=== PATIENT | male | born 1950 | race Caucasian/White ===

== ENCOUNTER → 2024-08-09 18:29 | Outpatient (REF) | payer MEDICARE, SELFPAY | LOC: MRI 3T 18:29 | PROVIDERS: ATTENDING PHYSICIAN Internal Medicine Medical Oncology; FAMILY PHYSICIAN Internal Medicine Geriatric Medicine | DX: C74.02 Malignant neoplasm of cortex of left adrenal gland (principal) | CPT/HCPCS: 72141 ==

== ENCOUNTER → 2024-08-19 14:35 | Outpatient (REF) | payer MEDICARE, SELFPAY ==
[2024-08-19 15:37] LABS: % Basophils 0.6 % (0-2); % Eosinophils 8.7 % (0-6); % Immature Granulocytes 0.2 % (0-0.5); % Lymphocytes 19.4 % (20.5-51.1); % Monocytes 9.9 % (1.7-9.3); % Neutrophils 61.2 % (42.2-75.2); Absolute Eosinophils 0.4 10^3/uL (0-0.7); Absolute Monocytes 0.5 10^3/uL (0.1-0.6); Hematocrit 31.3 % (39.0-52.0); Hemoglobin 10.6 g/dL (13.0-18.0); Mean Corp Hgb Conc. 33.9 g/dL (33.0-37.0); Mean Corpuscular Volume 94.6 fL (80.0-94.0); Mean Platelet Volume 10.5 fL (7.4-10.4); Nucleated Red Blood Cells % 0 % (-); Platelet Count 158 10^3/uL (130-400); Red Blood Cell Count 3.31 10^6/uL (4.70-6.10); Red Cell Dist. Width 15.6 % (11.5-14.5)
[2024-08-19 15:41] LABS: PT 16.4 Sec (11.4-14.6)
[2024-08-19 16:01] LABS: ALT (SGPT) 17 U/L (0-50); AST (SGOT) 34 U/L (17-59); Albumin 3.1 g/dl (3.5-5.0); Alkaline Phosphatase 147 U/L (38-126); Blood Urea Nitrogen 23 mg/dl (9-20); Calcium 8.6 mg/dl (8.4-10.2); Carbon Dioxide 27 mmol/L (22-30); Chloride 107 mmol/L (98-107); Glucose 94 mg/dl (70-99); Potassium 3.8 mmol/L (3.5-5.1); Sodium 138 mmol/L (135-145); Total Bilirubin 0.6 mg/dl (0.2-1.3); Total Protein 5.2 g/dl (6.3-8.2); eGFR > 60.00
== END ==
LOC: REG 14:35
PROVIDERS: ATTENDING PHYSICIAN Registered Nurse Oncology; FAMILY PHYSICIAN Internal Medicine Geriatric Medicine
DX: C78.7 Secondary malignant neoplasm of liver and intrahepatic bile duct (principal); C74.00 Malignant neoplasm of cortex of unspecified adrenal gland
CPT/HCPCS: 36415; 80053; 85025; 85610

== ENCOUNTER → 2024-08-27 10:56 | Outpatient (REF) | payer MEDICARE, SELFPAY | LOC: RAD 10:56 | PROVIDERS: FAMILY PHYSICIAN Internal Medicine Geriatric Medicine | DX: C79.51 Secondary malignant neoplasm of bone (principal); C79.52 Secondary malignant neoplasm of bone marrow | CPT/HCPCS: 70450 ==

== ENCOUNTER → 2024-09-30 12:29 | Outpatient (REF) | payer MEDICARE, SELFPAY ==
[2024-09-30 13:15] LABS: Hematocrit 35.8 % (39.0-52.0); Hemoglobin 12.0 g/dL (13.0-18.0); Mean Corp Hgb Conc. 33.5 g/dL (33.0-37.0); Mean Corpuscular Volume 96.8 fL (80.0-94.0); Nucleated Red Blood Cells % 0 % (-); Platelet Count 149 10^3/uL (130-400); Red Cell Dist. Width 15.2 % (11.5-14.5)
[2024-09-30 13:26] LABS: INR 1.30; PT 16.4 Sec (11.4-14.6)
[2024-09-30 13:28] LABS: ALT (SGPT) 22 U/L (0-50); AST (SGOT) 68 U/L (17-59); Albumin 3.5 g/dl (3.5-5.0); Alkaline Phosphatase 204 U/L (38-126); Blood Urea Nitrogen 18 mg/dl (9-20); Calcium 8.7 mg/dl (8.4-10.2); Carbon Dioxide 30 mmol/L (22-30); Chloride 102 mmol/L (98-107); Glucose 77 mg/dl (70-99); Potassium 3.8 mmol/L (3.5-5.1); Sodium 136 mmol/L (135-145); Total Protein 5.7 g/dl (6.3-8.2); eGFR > 60.00
== END ==
LOC: REG 12:29
PROVIDERS: ATTENDING PHYSICIAN Radiology Diagnostic Radiology; FAMILY PHYSICIAN Internal Medicine Geriatric Medicine
DX: C78.7 Secondary malignant neoplasm of liver and intrahepatic bile duct (principal)
CPT/HCPCS: 36415; 80053; 85025; 85610

== ENCOUNTER 2024-12-16 07:57 | Inpatient (IN) | payer MEDICARE, SELFPAY ==
[2024-12-15 21:56] VITALS: BP 149/74
[2024-12-16] VITALS (17 sets, daily range): BP systolic 86–137; BP diastolic 51–67; PULSE 103; O2SAT 93; BMI 26.0
[2024-12-16 01:57] LABS: Hematocrit 30.5 % (39.0-52.0); Hemoglobin 10.7 g/dL (13.0-18.0); Mean Corp Hgb Conc. 35.1 g/dL (33.0-37.0); Mean Corpuscular Volume 89.2 fL (80.0-94.0); Platelet Count 46 10^3/uL (130-400); Red Cell Dist. Width 17.3 % (11.5-14.5)
[2024-12-16 02:03] LABS: ALT (SGPT) 29 U/L (0-50); AST (SGOT) 79 U/L (17-59); Albumin 2.5 g/dl (3.5-5.0); Alkaline Phosphatase 162 U/L (38-126); Blood Urea Nitrogen 89 mg/dl (9-20); Calcium 7.0 mg/dl (8.4-10.2); Carbon Dioxide 19 mmol/L (22-30); Chloride 101 mmol/L (98-107); Estimated Creatinine Clearance 22 ml/min; Glucose 61 mg/dl (70-99); Potassium 5.3 mmol/L (3.5-5.1); Sodium 128 mmol/L (135-145); Total Protein 4.7 g/dl (6.3-8.2); eGFR 22.67
[2024-12-16] MEDS: DILAUDID 0.5 MG IV ×2 (02:46→10:31)
[2024-12-16 03:14] LABS: Nucleated Red Blood Cells % 0 % (-)
[2024-12-16 03:18] LABS: Vacuolated Segs 3+
[2024-12-16 03:19] LABS: Acanthocytes 2+; Burr Cells 3+
[2024-12-16 03:20] LABS: Polychromasia 1+
[2024-12-16 03:21] LABS: Anisocytosis 3+; Ovalocytes 1+; Schistocytes 1+
[2024-12-16 03:23] LABS: Normal RBC Morphology No
[2024-12-16 03:25] LABS: Urine Character Slightly Cloudy (Clear)
[2024-12-16 03:27] LABS: Glucose - Point of Care 84 mg/dl (70-99)
[2024-12-16 03:27] LABS: Urine Red Blood Cell 16-20 /HPF (0-2)
[2024-12-16 03:28] LABS: Urine White Cell >100 /HPF (0-5)
--- NOTE | 2024-12-16 03:50 | ED.GENMED ---
History of Present Illness
General
Chief Complaint: Abnormal Lab Value
Source: patient
Exam Limitations: none
Time Seen by Provider: 12/16/24 00:54
Nursing documentation reviewed up to this point in time: agreed with
History of Present Illness
History of Present Illness:
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 He was being treated at the [facility] in [place] until recently. There he was given a trial of
medication had significant renal dysfunction they are discontinued the treatment recently and came home to the local area here today. Initially was refusing any rehabilitation facility at the time but claims that he has had significant difficulty
with gait ambulation and caring for himself. He feels that he is unsafe to be home at this point. He is seeking palliative care. Patient claims to be DNR/DNI.
Past History
Past History
ED Past Medical History: Arrthythmia (SVT)
Social History
Tobacco: Non-smoker
Alcohol: None
Drug: None
Personal:
Living: with family
Employment: Employed
Family History
Family History: Other (Noncontributory)
Review of Systems
Review of Systems
Allergies reviewed?: Yes
All Other Systems: ROS reviewed and negative except as documented in HPI and ROS
Phy Exam
Physical Exam
Physical Exam:
GENERAL: Alert , in no apparent distress
EYE: pupils equal and reactive
NECK: Supple, no significant adenopathy.
ENT: o/p clr, mmm.
CARDIAC: Regular rate and rhythm .
LUNGS: Clear breath sounds bilaterally, no acute respiratory distress, no wheezes/rales/rhonchi
ABDOMEN: Rigid abdomen with significantly enlarged liver no pain to palpation
NEUROLOGICAL: Alert and oriented, no focal neuro deficits
SKIN: Warm and dry, skin intact.
MUSCULOSKELETAL: No edema, well perfused.
PSYCH: Normal and appropriate interaction.
Course
Orders/Labs/Results
Orders:
Orders
12/16/24 01:10
Electrocardiogram (*1) Urgent
Reason for Study: Fatigue / Weakness
EKG- Treatment ONCE
12/16/24 01:34
CBC/With Diff [Complete Blood Count/With Diff] Urgent
CMP [Comprehensive Metabolic Panel] Urgent
12/16/24 02:36
HYDROmorphone [Dilaudid] 0.5 mg IV NOW STA
12/16/24 02:47
Urinalysis Reflex To Culture Urgent
Date Specimen was Collected: 12/16/24
Time Specimen was Collected: 02:46
Urine Microscopic Reflex Cult Urgent
Urine Culture Urgent
RADHA Source: U
Specimen Description:
Date Specimen was Collected: 12/16/24
Time Specimen was Collected: 02:46
12/16/24 04:13
CefTRIAXone [Rocephin] 1,000 mg IV NOW STA
Pt Eval And Treat Urgent
Activity Level: Ambulate
Abnormal Lab Results
12/16/24 12/16/24
01:34 02:47
WBC 13.7 H 10^3/uL
(4.8-10.8)
RBC 3.42 L 10^6/uL
(4.70-6.10)
Hgb 10.7 L g/dL
(13.0-18.0)
Hct 30.5 L %
(39.0-52.0)
MCH 31.3 H pg
(27.0-31.0)
RDW 17.3 H %
(11.5-14.5)
Plt Count 46 L 10^3/uL
(130-400)
MPV 12.6 H fL
(7.4-10.4)
Abs Immat Gran (auto) 0.1 H 10^3/uL
(0-0.05)
Absolute Neuts (auto) 12.8 H 10^3/uL
(1.4-6.5)
Absolute Lymphs (auto) 0.3 L 10^3/uL
(1.2-3.4)
Immature Gran % 0.7 H %
(0-0.5)
Neutrophils % 93.0 H %
(42.2-75.2)
Lymphocytes % 1.9 L %
(20.5-51.1)
Sodium 128 L mmol/L
(135-145)
Potassium 5.3 H mmol/L
(3.5-5.1)
Carbon Dioxide 19 L mmol/L
(22-30)
BUN 89 H mg/dl
(9-20)
Creatinine 2.8 H mg/dL
(0.7-1.3)
Glucose 61 L mg/dl
(70-99)
Calcium 7.0 L mg/dl
(8.4-10.2)
AST 79 H U/L
(17-59)
Alkaline Phosphatase 162 H U/L
(38-126)
Total Protein 4.7 L g/dl
(6.3-8.2)
Albumin 2.5 L g/dl
(3.5-5.0)
Ur Occult Blood Reflex 4+ A
(Negative)
Leukocyte Esterase Rfl 3+ A
(Negative)
Urine RBC 16-20 A /HPF
(0-2)
Urine WBC (Reflex) >100 A /HPF
(0-5)
Urine Bacteria (Reflex) Many A
(Negative)
Urine Albumin (Reflex) 3+ A
(Neg - Trace)
12/16/24 01:34
12/16/24 01:34
Vital Signs
Initial and Last Documented VS:
Initial Vital Signs
Temp Pulse Resp BP Pulse Ox
98.8 F 93 24 149/74 95
12/15/24 21:56 12/15/24 21:56 12/15/24 21:56 12/15/24 21:56 12/15/24 21:56
Last Documented Vital Signs
Temp Pulse Resp BP Pulse Ox
98.8 F 82 19 115/58 91
12/16/24 03:39 12/16/24 03:30 12/16/24 03:30 12/16/24 03:00 12/16/24 03:53
MDM/Problems Addressed
MDM/Problems Addressed:
74-year-old male presenting to the emergency department today with concerns of difficulty caring for himself at home. Does have metastatic adrenal carcinoma. Was previously getting a trial treatment at the [facility] but was recently discontinued due
lack of clinical improvement. On arrival here vital signs nonemergent labs apparently at patient's baseline after discussion with patient's team from the [facility]. At this point he claims he is unsafe to go home plan to admit for case management
consultation and further assessment.
*Pulse Oximetry
SaO2: 91
Oxygen Mode of Delivery: Room air
Patient hypoxic: no (97)
*Critical Care Note
Total Time (30-74mins, 75-104mins- exclusive of procedures): Not Applicable
ED Attending Note
-
Portions of this chart may have been created with voice recognition software.� Occasional wrong word or��sound alike� substitutions may have occurred due to the inherent limitations of voice recognition software.
Discharge Plan
Departure
Patient Disposition: Admit
Date of Disposition: 12/16/24
Time of Disposition: 05:22
Admit to: Med/Surg
Admit to doctor: Ho
Presentation/result/management discussed w/ accepting MD/DO: Hospitalist
Patient with high blood pressure during this ER visit?: No
Condition: Good
Covid-19: Not Applicable
Discharge Problem:
Acute UTI, Ambulatory dysfunction
Prescriptions:
No Action
ascorbic acid (vitamin C) 1,500 MG tablet extended release
1,500 mg PO TID
[id number]-herbal cmplx#190 [Vitamin D3 Complete] 1 EACH tablet
5 ea PO DAILY
[place] Bioflavonoids
600 mg PO DAILY
Referrals:
Mike Wills MD [Family Provider, Internal Medicine]
Interventions
Interventions:
*Risk Screen - Suicide Last Done: 12/16/24 00:40
*General Assessment Last Done: 12/16/24 00:40
*Neglect/Abuse Screening Last Done: 12/16/24 00:40
*ED COVID-19 Vaccine History Last Done: 12/16/24 00:39
*ED Influenza Vaccine History Last Done: 12/16/24 00:39
Discharge Date and Time
Print Language: [place]CI[place]
[2024-12-16] MEDS: ROCEPHIN 1000 MG IV (05:39)
--- NOTE | 2024-12-16 06:41 | HPS.HSE ---
Family Physician
-
Family Physician: Mike Wills
Chief Complaint
-
Failure to thrive
History of Present Illness
This is a 74-year-old male with past medical history of progressive metastatic adrenal cancer who presents after discharge from [facility] study today for failure to improve and stopped at ED because he realizes he is unable to money by himself.
Patient is a fairly poor historian at this time but history obtained from [facility] [place] medical records.
Patient has extensive history of metastatic adrenal cancer status post lymphadenectomy in 2019, ablation of a kidney mass direct with for the metastases noted in the liver lungs and metastatic to bone. He has extensive liver mass with the largest
mass measuring 20 cm despite this patient is not complaining of any abdominal pain but does have mild nausea with occasional vomiting. He progressed through pembrolizumab in 2022, cabozantinib plus pembrolizumab in 2023 with improvement in lung
mets but continued progression of liver mets. He apparently had 3 Y90 treatment in July and for that treatment was deemed not to be helpful by IR. CT scan continue to show progression of disease in October and patient was ultimately enrolled in [facility]
trial. He completed several weeks of NIH trial from November 2 December 15 when he was discharged from the trial for failure to improve. In the past he has had weakness and diarrhea from his chemotherapy but denies any specific symptoms from this
current treatment but states that he was deemed unable to continue the trial. He was not discharged on any new medications except for symptomatic meds. He did note that he had more pain and was getting Dilaudid at [facility]. After discharge from [facility]
patient who lives at [place] traveled to [place] because he is oncologist there is at [facility] and brought himself to this ED.
He blood pressure was 115/58, temperature was 98.2, pulse rate 82 and he was satting 91% on room air. ECG shows normal sinus rhythm at a rate of 85.
UA is positive. CBC notable for white count 13.7 and a blood count of 46. Electrolytes notable for a sodium of 128 potassium of 5.3 bicarb of 19. BUN is up to 89 with a creatinine of 2.8 up from 0.9 in September. Calcium 7.0 corrected to 8.2 with
albumin of 2.5.
This labs were said to be similar to his discharge labs from the [facility] study.
Medical History
Past Medical History
Past Medical History: Reports Cancer (Metastatic adrenal carcinoma)
Past Surgical History: Reports Other (Left adrenalectomy, ablation of kidney mass, left nephrectomy)
Social History
Tobacco: Former Smoker
Alcohol: None
Drug: None
Personal: Single
Living: Alone
Employment: Disabled
Family History
Family History: Not pertinent
Allergies / Home Medications
Allergies reflects when Allergies were last updated in [facility].
Home Medications with original date entered in [facility]
Allergy/Medication List:
Allergies
Allergy/AdvReac Type Severity Reaction Status Date / Time
No Known Allergies Allergy Verified 08/07/20 10:42
Home Medications
[place] Bioflavonoids 600 mg PO DAILY 08/07/20
ascorbic acid (vitamin C) 1,500 mg tablet,extended release 1,500 mg PO TID 08/07/20
multivit with [id number]#190herbal 18 mg iron-800 mcg-150 mg tablet (Vitamin D3 Complete) 5 ea PO DAILY 08/07/20
Review of Systems
-
History Source: Patient
Constitutional: Reports Fatigue
EENT: Reports No Symptoms
Respiratory: Reports No Symptoms
Cardiac: Reports No Symptoms
Abdomen/GI: Reports Nausea and Constipated
: Reports No Symptoms
Musculoskeletal: Reports Edema
Skin: Reports No Symptoms
Neurological: Reports No Symptoms
Endocrine: Reports No Symptoms
Hematologic/Lymphatic: Reports No Symptoms
Physical Exam
Vital Signs
Vital Signs
Temp Pulse Resp BP Pulse Ox
98.8 F 91 22 124/60 91
12/16/24 03:39 12/16/24 05:45 12/16/24 05:45 12/16/24 05:00 12/16/24 05:45
Physical Exam
General: No Apparent Distress and Appears Chronically Ill; No Cachectic
HEENT: NormoCephalic, Anicteric, Moist mucous membranes, Atraumatic and PERRLA
Respiratory: Clear
Cardiac: S1/S2 and Regular Rhythm
Breast: Deferred by me
GI: Distended and Organomegaly (Hepatomegally)
Rectal: Deferred by Provider
Genito-urinary: Deferred by me
Musculoskeletal: Edema, Left Lower Extremity (2+) and Edema, Right Lower Extremity (2+)
Skin: Warm
Neuro: AO x 3 and Nonfocal/grossly intact
Psych: Calm
Laboratory Results
-
12/16/24 01:34
12/16/24 01:34
Laboratory Results
Total Bilirubin 1.1 mg/dl (0.2-1.3) 12/16/24 01:34
AST 79 U/L (17-59) H 12/16/24 01:34
ALT 29 U/L (0-50) 12/16/24 01:34
Alkaline Phosphatase 162 U/L (38-126) H 12/16/24 01:34
Data Reviewed
-
Medical Tests (Nuc Med, Echo, EKG etc): Image Personally Visualized and interpreted
Lab Data: Labs Reviewed by me
Impression/Plan
-
IMPRESSION:
74-year-old with metastatic adrenal cancer presenting to the emergency department with essentially failure to thrive after being discharged from [facility] study for failure of improvement. Comes to ED here for placement. While not cachectic he is
clearly weak with progressive weight loss has significant bilateral lower extremity edema, large abdominal mass likely of liver origin with labs notable for thrombocytopenia, natremia, JAVED with a creatinine of 2.8 and a BUN of 89 with mild
hypocalcemia. He has significantly positive UA without urinary symptoms.
PLAN:
UTI - Markedly positive u/a peripheral leukocytosis. No clear h/o obstruction
- admit to med/surg
- urine culture sent
- IV ceftriaxone for now
- w/ solitary kidney and metastatic disease, u/s imaging to rule out ureteral obstruction
JAVED - Cr normal in September now 2.8. Reported to be discharge creatinine from recent NIH study. Unknown what studies done to determine etiology or if med induced. Suggestion of dehydration given FTT but patient w/ peripheral edema. Reports no h/o
ascites/cirrhosis, no h/o thrombosis and no h/o CHF. Says Edema has been chronic for years. Urinated
- u/s abdomen to rule out obstruction, eval ascites
- urine Na, Cr
- Gentle hydration for now
- nephrology consult.
Hyponatremia - Subacute suspected. Possible hypovolemic despite peripheral edema
- urine studies with urine osm
- eval for ascites
- check tsh
- start IV NS with free water restriction and repeat in 6 - 8 hours,
- nephrology consult
EDEMA - Reports chronic LE edema. No h/o CHF
- check bnp
- Xray
- abd u/s and dopplers to eval IVC thrombus or extrinsic obstruction
- urine protein/Cr
Hypocalcemia
- 1 g calcium gluconate for now
Metastatic Adrenal Ca - Appears to have failed trial drug. Oncology has one more option previously discussed but seemed toxic with low probability of efficacy
- his oncologist is now Dr. Shanelle Jacob at [facility], contact in am
- continue antiemetics, pain control, antitussives
- PT consultation
- Case management
DVT PPX - heparin sq
Code Status - DNR.
[2024-12-16] MEDS: TYLENOL 650 MG PO (09:32)
[2024-12-16] MEDS: SYNTHROID PO (09:35)
[2024-12-16] MEDS: COLACE PO (10:32)
[2024-12-16] MEDS: D5/0.9% SODIUM CHLORIDE 1000 IV (11:15)
--- NOTE | 2024-12-16 12:06 | CM ---
Met with patient at bedside in the ED; with his permission, [employer], spoke with primary contact/cousin, John, via phone. Cousin lives in [place]; believes he has medical POA
Patient was drowsy during initial assessment; cousin verified patient's assessment responses
Pharmacy: [address]
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
PLOF: difficulty ambulating and caring for self; no home oxygen
No SNF or Home Health utilization history
Plan: Inpatient Admission status; explained to patient that SNF was recommended when he is stable for discharge; he is agreeable to caser in sending referrals to sites in [place]
--- NOTE | 2024-12-16 13:28 | W.PN.HOSP.TC ---
Addendum entered and electronically signed by Abhishek Spring DO 12/17/24 15:43:
CDI: Sepsis POA, SIRS criteria improved with IV fluids and antibiotics
Original Note:
Today's Communication/Plan
-
Continue IV fluids for now
Follow-up ultrasound of abdomen
Order TTE and chest x-ray
Oncology consult
Pending nephrology eval
Requested records from [facility]
Assessment / Plan
Assessment / Plan
#Urinary tract infection
#Solitary kidney, s/p left nephrectomy
- Presented with markedly positive urinalysis, leukocytosis, low-grade fever
- Urine culture obtained in the ED and started on IV ceftriaxone empirically
- Renal ultrasound ordered to rule out obstructing stone due to solitary kidney
- Continue IV CTX, trend CBC and temperature curve, follow urine culture
- Follow-up renal ultrasound
#Elevated serum creatinine
#Hyperkalemia
- JAVED versus newly acquired chronic renal insufficiency due to experimental cancer therapy
- Unknown pharmacodynamics/kinetics concerning which agent he was receiving at the [facility] for his cancer
- Presented here with creatinine of 2.8, BUN 89; states that these are similar to numbers he had at [facility]
- Was started on IV fluids upon arrival, no labs repeated since that time; nephrology consult pending
- Continue with IV fluids, trend BMP and UOP closely
- Follow-up renal ultrasound to rule out obstruction
- Avoid nephrotoxic agents, temporize K >6 or ECG changes
- F/U [facility] records, which have been requested
#Hypovolemic hyponatremia
- Urine osmolality 272 with low urine sodium, unlikely inappropriate ADH
- Started on IV fluids upon arrival which suspect will improve sodium
- Continue IV fluids and trend BMP
#Chronic LE edema
-BNP is very high however he does not complain of other symptoms of heart failure
-Abdomen ultrasound and Dopplers were ordered on arrival to rule out IVC thrombus/obstruction
-Urine protein to creatinine ratio 4.9 not consistent with active glomerular process
-Follow-up ultrasound of the abdomen, check TTE and chest x-ray
#Metastatic adrenal cancer
-S/p chemoradiation and immunotherapy, also received ablations in the past
-Was improved with experimental trial at the [facility] though discharged yesterday as he did not improve
-Will consult oncology for further treatment considerations
-Question if he is at the point of needing hospice
#Hypothyroidism
-Unclear etiology, no known autoimmune history, possibly related to cancer
-Home regimen includes levothyroxine 88 mcg daily, appears stable on this regimen
Diet: Regular
Thromboprophylaxis: SQ heparin
CODE STATUS: DNR/DNI
Disposition: PT consulted
Anticipated Discharge: > 48 hours
Subjective/Interval History
-
Date of Service: December 16, 2024
Seen and examined at the bedside. No acute events reported overnight. AFVSS this morning
BNP came back at 27,000. Abdomen ultrasound still pending since admission.
Patient denies any acute complaints this morning.
Objective Data
-
Labs:
Laboratory Results
12/16/24
01:34
WBC 13.7 H
Hgb 10.7 L
Hct 30.5 L
Plt Count 46 L
Sodium 128 L
Potassium 5.3 H
Chloride 101
Carbon Dioxide 19 L
BUN 89 H
Creatinine 2.8 H
Glucose 61 L
Calcium 7.0 L
Total Bilirubin 1.1
AST 79 H
ALT 29
Alkaline Phosphatase 162 H
Vital Signs:
Vital Signs
Temp Pulse Resp BP Pulse Ox
100.6 F H 76 15 88/57 95
12/16/24 08:36 12/16/24 13:00 12/16/24 13:00 12/16/24 13:00 12/16/24 13:00
Review of Systems
-
History Source: Patient
All other systems: Reviewed and negative
Physical Exam
-
General: Well Developed, Appears Chronically Ill and Other (Frail-appearing)
HEENT: Normocephalic, Atraumatic, Moist Mucous Membranes and Anicteric
Respiratory: Clear to Auscultation and Non Labored Respirations
Cardiac: Regular Rhythm and S1/S2; Negative Murmur, Rub or Tachycardic
GI: Tender, Distended and Other (Reduced bowel sounds)
Musculoskeletal: No Clubbing, No Cyanosis and No Edema
Skin: Warm and Dry; Negative Rash
Neuro: AO x 3 and Nonfocal/Grossly Intact
Psych: Calm
Data Reviewed
-
Labs: Labs Reviewed by me, Discussed with Physician (Oncologist) and Discussed with Patient
--- NOTE | 2024-12-16 14:27 | W.CON.NEPH ---
Consultation
-
Date/Time Consultation Requested: 12/16/2024 11 AM
Date/Time Consultation Performed: 12/16/2024 2 PM
Requesting Provider: Dr. Teague
Performing Provider: Dr. Timmons
Reason for Consultation: JAVED
Medical History
-
Chief Complaint: JAVED
History of Present Illness:
This is a 74-year-old gentleman with metastatic renal cancer status post left adrenalectomy in 2019 with metastatic disease to liver lungs bone. He has also had a left nephrectomy as well. He has failed multiple chemotherapy immunotherapy
regimens. Most recently he was enrolled in an [facility] study from November 08 to December 15 but then was discharged with a trial because of failure of improvement. He subsequently came to [place] to [facility].. Here he was noted to have
a creatinine of 2.8 with a sodium of 128 and potassium 5.3. Labs were closer to normal with a creatinine 0.9 back in September 2024. He is noted to be hypotensive in the emergency room as well
Past Medical History
Metastatic adenocarcinoma
Left adrenalectomy
Kidney mass ablation
Left nephrectomy
Hypothyroidism
Social History
Tobacco: Former Smoker
Alcohol: None
Family History
Family History: Not Pertinent
Allergies / Home Medications
Allergy/AdvReac Type Severity Reaction Status Date / Time
No Known Allergies Allergy Verified 08/07/20 10:42
�Medication �Instructions �Recorded �Confirmed �Type
levothyroxine 88 mcg tablet 88 mcg PO DAILY 12/16/24 12/16/24 History
Review of Systems
-
No chest pain appetite has been good
Lower extremity ISAIAH stable
Abdominal distention stable
Lightheadedness
No change in urine output
no change in bowel movements
All other systems: Negative unless noted
Physical Exam
Vital Signs
Vital Signs
Temp Pulse Resp BP Pulse Ox
100.6 F H 76 15 88/57 95
10/10/25 08:36 12/16/24 13:00 12/16/24 13:00 12/16/24 13:00 12/16/24 13:00
Lab Results
WBC 13.7 10^3/uL (4.8-10.8) H 12/16/24 01:34
RBC 3.42 10^6/uL (4.70-6.10) L 12/16/24 01:34
Hgb 10.7 g/dL (13.0-18.0) L 12/16/24 01:34
Hct 30.5 % (39.0-52.0) L 12/16/24 01:34
Plt Count 46 10^3/uL (130-400) L 12/16/24 01:34
Sodium 128 mmol/L (135-145) L 12/16/24 01:34
Potassium 5.3 mmol/L (3.5-5.1) H 12/16/24 01:34
Chloride 101 mmol/L (98-107) 12/16/24 01:34
Carbon Dioxide 19 mmol/L (22-30) L 12/16/24 01:34
BUN 89 mg/dl (9-20) H 12/16/24 01:34
Creatinine 2.8 mg/dL (0.7-1.3) H 12/16/24 01:34
eGFR 22.67 12/16/24 01:34
Glucose 61 mg/dl (70-99) L 12/16/24 01:34
Calcium 7.0 mg/dl (8.4-10.2) L 12/16/24 01:34
Zju-Q-Kjqgcvuzqmf Pept > 89822 pg/ml 12/16/24 09:35
Albumin 2.5 g/dl (3.5-5.0) L 12/16/24 01:34
Laboratory Tests
09/30/24 12/16/24 12/16/24
12:46 09:04 09:35
Creatinine 0.9
Meg-G-Kxjvurjghtu Pept > [id number]
Protein/Creatinin Ratio 4.9
Urine Sodium 20 L
Physical Exam
Patient is awake alert oriented and in no distress. Mood and affect were pleasant, insight and judgment were good. Pupils are equal round and reactive to light, extraocular movements are intact, sclera were anicteric. Hearing was normal, ears and
nose are intact. Oropharynx was clear. Neck was supple with trachea midline and no thyromegaly. Heart was regular rate and rhythm without rubs. Lower extremities with 3+ edema. Lungs were clear to auscultation bilaterally and with normal
excursion. Abdomen was soft, nontender, distended with palpable mass on the right. With normal active bowel sounds. Skin was without rash and with normal turgor.
Data Reviewed
-
Medical Tests (Nuc Med, Echo etc): Image Personally Visualized and interpreted (EKG 12/16/2024 by me normal sinus rhythm left axis deviation)
Labs: Labs Reviewed by me
Old Records: Reviewed
Assessment/Plan
-
Assessment
JAVED
Hyponatremia
Hyperkalemia
Metabolic acidosis
Hypotension
Edema
Nephrotic range proteinuria
Metastatic adrenal carcinoma
Solitary right kidney, left nephrectomy
Plan
Continue IV fluids isotonic
Follow BMP
Check cortisol
Start hydrocortisone
Await additional records from [facility]
Prognosis poor
Critical care time spent 31 minutes
[2024-12-16] MEDS: SOLU-CORTEF 100 MG IV ×2 (15:29→20:01)
--- NOTE | 2024-12-16 15:57 | PN.CDI ---
CDI
- -
CDI:
Physician Documentation Request
Admit Date: 12/16/24 07:57
Dear Doctor Saw,
Please review the following and provide your response in the progress notes.
Clinical Indicators:
Pt admitted with JAVED/UTI pt on IV ceftriaxone
On admission WBC 13.7,HR 120,Respirations 33
Please clarify which of the following most accurately describes the status of the patient's infection:
Sepsis-POA
- Systemic manifestations of infection, with 2 or more SIRS criteria which include:
- Fever >100.9 degrees F or hypothermia < 96.8 degrees F
- Leukocytosis - WBC > 12,000 or leukopenia - WBC < 4,000 or > 10% bands
- Tachycardia > 90 beats per minute
- Tachypnea - RR > 20 breaths per minute or PaCO2 , 32mmHg
Source: Merck Manual 2013
UTI only, Without Systemic Illness
Other ( please specify)
Use of terms such as suspected, likely, concern for, or probable (associated with a specific diagnosis that is being evaluated, monitored, or treated as if it exists) are acceptable and can be coded in the inpatient setting, when documented at the
time of discharge.
Thank you,
Patricia Cleary RN
CDI Specialist
[place] [facility]
Please use your independent medical judgment in providing your response.
[2024-12-16 16:50] LABS: Cortisol, Random 55.3 ug/dl
[2024-12-16] MEDS: COLACE 100 MG PO (19:51)
[2024-12-17] MEDS: D5/0.9% SODIUM CHLORIDE 1000 IV (01:26)
[2024-12-17] MEDS: DILAUDID 0.5 MG IV ×2 (02:39→23:28)
[2024-12-17] MEDS: SYNTHROID 88 MCG PO (05:49)
[2024-12-17] MEDS: STERILE WATER FOR INJECTION 10 ML IV (05:49)
[2024-12-17] MEDS: ROCEPHIN 1000 MG IV (05:49)
[2024-12-17 06:00] VITALS: BMI 25.3
[2024-12-17 06:53] LABS: Hematocrit 31.6 % (39.0-52.0); Hemoglobin 10.5 g/dL (13.0-18.0); Mean Corp Hgb Conc. 33.2 g/dL (33.0-37.0); Mean Corpuscular Volume 92.9 fL (80.0-94.0); Red Cell Dist. Width 17.6 % (11.5-14.5)
[2024-12-17 07:14] LABS: Blood Urea Nitrogen 107 mg/dl (9-20); Calcium 6.9 mg/dl (8.4-10.2); Carbon Dioxide 17 mmol/L (22-30); Chloride 101 mmol/L (98-107); Glucose 122 mg/dl (70-99); Potassium 5.3 mmol/L (3.5-5.1); Sodium 126 mmol/L (135-145)
[2024-12-17 07:30] LABS: Platelet Count 17 10^3/uL (130-400)
--- NOTE | 2024-12-17 07:33 | PTCARENOTE ---
Lab informed this RN of critical plt, result= 17, calcium, result= 6.9, and BUN, result= 107. made aware.
[2024-12-17 07:40] LABS: Estimated Creatinine Clearance 17 ml/min; eGFR 17.35
[2024-12-17] MEDS: SOLU-CORTEF 100 MG IV (08:03)
[2024-12-17] MEDS: COLACE 100 MG PO (08:03)
[2024-12-17 08:13] VITALS: BP 121/67
[2024-12-17] MEDS: NON-FORMULARY ITEM 1 UNIT PO (10:20)
--- NOTE | 2024-12-17 10:56 | CON.ONC ---
Consultation
-
Date Consultation Requested: 12/16/24
Date Consultation Performed: 12/17/24
Impression
Impression
Metastatic adrenal cortical carcinoma
Urosepsis
Thrombocytopenia without active bleeding
DIC evaluation
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
Declining performance status
Inadequate social support or living circumstances
Hypothyroid
SIADH
Congestive heart failure? BNP >27,000
Plan
Plan
Alternate antibiotic cephalosporins may be exacerbating thrombocytopenia
DIC profile pending
Peripheral smear
Direct platelet antibody
Antiphospholipid antibodies
Transfuse platelets for active bleeding or<10K
Suspect a component of sequestration given size of liver mass
Patient hoping to transition care locally
Social service evaluation
Patient History
History of Present Illness
This is a 74-year-old male with past medical history of progressive metastatic adrenal cancer who presents after discharge from [facility] study today for failure to improve and stopped at ED because he realizes he is unable to money by himself.
Patient is a fairly poor historian at this time but history obtained from [facility] medical records. Patient has extensive history of metastatic adrenal cancer status post lymphadenectomy in 2019, ablation of a kidney mass direct with for the metastases
noted in the liver lungs and metastatic to bone. He has extensive liver mass with the largest mass measuring 20 cm despite this patient is not complaining of any abdominal pain but does have mild nausea with occasional vomiting. He progressed
through pembrolizumab in 2022, cabozantinib plus pembrolizumab in 2023 with improvement in lung mets but continued progression of liver mets. He apparently had 3 Y90 treatment in July and for that treatment was deemed not to be helpful by IR. CT
scan continue to show progression of disease in October and patient was ultimately enrolled in [facility] trial. He completed several weeks of [facility] trial from November 2 December 15 when he was discharged from the trial for failure to improve. In the past
he has had weakness and diarrhea from his chemotherapy but denies any specific symptoms from this current treatment but states that he was deemed unable to continue the trial. He did note that he had more pain and was getting Dilaudid at [facility].
After discharge from [facility] patient who lives at [place] traveled to [place] because he is oncologist there is at [facility] and brought himself to this ED. patient admits that he has been sleeping on the floor of his office in [place] without
access to a shower or cooking facilities. He has been showering at his local gym.
Past-Medical/Surgical History
Past Medical History
Metastatic adrenal carcinoma
Past Surgical History
Left adrenalectomy, ablation of kidney mass, left nephrectomy
Social History
Tobacco: Former Smoker
Alcohol: None
Drug: None
Personal: Single
Living: Alone
Employment: Disabled
Family History
Family History: Not pertinent
Patient Medication
�Medication �Instructions �Recorded �Confirmed �Last Taken �Type
levothyroxine 88 mcg tablet 88 mcg PO DAILY 12/16/24 12/16/24 Unknown History
ascorbate calcium-bioflavonoid 500 1 tab 1XD 12/17/24 12/17/24 2 Days Ago History
mg-200 mg tablet (Laurie-C with ~12/15/24
Bioflavonoids)
cholecalciferol (vitamin D3) 25 25 mcg PO DAILY 12/17/24 12/17/24 2 Days Ago History
mcg (1,000 unit) capsule ~12/15/24
magnesium oxide 400 mg PO DAILY 12/17/24 12/17/24 2 Days Ago History
~12/15/24
potassium chloride 20 meq PO 1XD 12/17/24 12/17/24 2 Days Ago History
~12/15/24
prochlorperazine maleate 10 mg Q6 PRN nausea 12/17/24 12/17/24 2 Days Ago History
~12/15/24
Active Medications
Generic Name Dose Route Start Last Admin
Trade Name Freq PRN Reason Stop Dose Admin
Acetaminophen 650 mg 12/16/24 08:22 12/16/24 09:32
Acetaminophen 325 Mg Tablet PO 01/13/25 08:21 650 mg
Q4HPRN PRN Administration
mild pain/SCHAFER/temp> 100.4F
Bisacodyl 10 mg 12/16/24 08:22
Bisacodyl 10 Mg Rectal Suppository RECTAL 01/13/25 08:21
U62GUAT PRN
constipation
Ceftriaxone Sodium 1,000 mg 12/17/24 06:00 12/17/24 05:49
Ceftriaxone 1000 Mg / 10 Ml Vial IV 1,000 mg
Q24H SAMEERA Administration
Docusate Sodium 100 mg 12/16/24 08:22 12/17/24 08:03
Docusate Sodium 100 Mg Capsule PO 01/13/25 08:21 100 mg
BID SAMEERA Administration
Hydromorphone HCl 0.5 mg 12/16/24 08:22 12/17/24 02:39
Hydromorphone 0.5 Mg/0.5 Ml Syringe IV 12/30/24 08:21 0.5 mg
Q4HPRN PRN Administration
severe pain
Dextrose/Sodium Chloride 1,000 mls @ 75 mls/hr 12/16/24 08:22 12/17/24 01:26
D5/0.9% Sodium Chloride IV 1,000 mls
.[id number] SAMEERA Administration
Levothyroxine Sodium 88 mcg 12/16/24 08:22 12/17/24 05:49
Levothyroxine 88 Mcg Tablet PO 01/13/25 08:21 88 mcg
DAILY@0600 SAMEERA Administration
Laurie-C 500 Mg (1 0 unit 12/17/24 10:00 12/17/24 10:20
Capsule) Po Daily PO 01/14/25 09:59 1 unit
DAILY SAMEERA Administration
Oxycodone HCl 5 mg 12/16/24 08:22
Oxycodone 5 Mg Regular Release Tablet PO 12/30/24 08:21
Q4HPRN PRN
moderate pain
Polyethylene Glycol 17 grams 12/16/24 08:22
Polyethylene Glycol Powder 17 Grams Packet PO 01/13/25 08:21
DAILYPRN PRN
constipation
Prochlorperazine Edisylate 5 mg 12/16/24 08:22
Prochlorperazine 10 Mg/2 Ml Vial IV 01/13/25 08:21
Q6HPRN PRN
nausea
Sodium Chloride 0 flush 12/16/24 09:00
Sodium Chloride 0.9% (Flush) Syringe IV 01/13/25 08:59
PER PROTOCOL SAMEERA
Sterile Water 10 ml 12/17/24 06:00 12/17/24 05:49
Sterile Water For Injection 10 Ml Vial IV 01/14/25 05:59 10 ml
Q24H SAMEERA Administration
Review of Systems
-
12 point review of systems fails elicit additional complaints other than those reported in the HPI.
Physical Exam
-
Physical Exam
General: No Apparent Distress and Appears Chronically Ill; No Cachectic
HEENT: NormoCephalic, small laceration on his forehead, moist mucous membranes, Atraumatic and PERRLA
Respiratory: Clear
Cardiac: S1/S2 and Regular Rhythm
GI: Massive hepatomegaly
Musculoskeletal: Edema, Left Lower Extremity (2+) and Edema, Right Lower Extremity (2+)
Skin: Warm
Neuro: AO x 3 and Nonfocal/grossly intact
Psych: Calm
Labs
Lab Results
WBC 16.4 10^3/uL (4.8-10.8) H 12/17/24 06:07
RBC 3.40 10^6/uL (4.70-6.10) L 12/17/24 06:07
Hgb 10.5 g/dL (13.0-18.0) L 12/17/24 06:07
Hct 31.6 % (39.0-52.0) L 12/17/24 06:07
MCV 92.9 fL (80.0-94.0) 12/17/24 06:07
MCH 30.9 pg (27.0-31.0) 12/17/24 06:07
MCHC 33.2 g/dL (33.0-37.0) 12/17/24 06:07
RDW 17.6 % (11.5-14.5) H 12/17/24 06:07
Plt Count 17 10^3/uL (130-400) L* D 12/17/24 06:07
MPV Not Reportable 12/17/24 06:07
Abs Immat Gran (auto) 0.1 10^3/uL (0-0.05) H 12/16/24 01:34
Absolute Neuts (auto) 12.8 10^3/uL (1.4-6.5) H 12/16/24 01:34
Absolute Lymphs (auto) 0.3 10^3/uL (1.2-3.4) L 12/16/24 01:34
Absolute Monos (auto) 0.4 10^3/uL (0.1-0.6) 12/16/24 01:34
Absolute Eos (auto) 0.1 10^3/uL (0-0.7) 12/16/24 01:34
Absolute Basos (auto) 0.1 10^3/uL (0-0.2) 12/16/24 01:34
Immature Gran % 0.7 % (0-0.5) H 12/16/24 01:34
Neutrophils % 93.0 % (42.2-75.2) H 12/16/24 01:34
Lymphocytes % 1.9 % (20.5-51.1) L 12/16/24 01:34
Monocytes % 3.2 % (1.7-9.3) 12/16/24 01:34
Eosinophils % 0.8 % (0-6) 12/16/24 01:34
Basophils % 0.4 % (0-2) 12/16/24 01:34
Creatinine 3.5 mg/dL (0.7-1.3) H 12/17/24 06:07
Vital Signs
Vital Signs
Temp Pulse Resp BP Pulse Ox
97.2 F 70 18 121/67 94
12/17/24 08:13 12/17/24 08:13 12/17/24 08:13 12/17/24 08:13 12/17/24 08:13
[2024-12-17 11:11] LABS: INR 2.09; PT 23.6 Sec (11.4-14.6)
[2024-12-17 11:12] LABS: APTT 39.7 Sec (23.4-35.0); Fibrinogen 479 MG/DL (199-459)
[2024-12-17 11:22] LABS: D-Dimer 8.28 ug/mlFEU (0.00-0.50)
--- NOTE | 2024-12-17 12:19 | W.PN.HOSP.TC ---
Today's Communication/Plan
-
Continue antibiotics
Urology consult for percutaneous nephrostomy
Follow-up antiphospholipid and antiplatelet antibodies
Supportive platelet transfusions if needed
Fluid restricted diet, IV fluids
Goals of care ongoing
Assessment / Plan
Assessment / Plan
#Urinary tract infection
#Solitary kidney, s/p left nephrectomy
- Presented with markedly positive urinalysis, leukocytosis, low-grade fever
- Urine culture obtained in the ED and started on IV ceftriaxone empirically
- Renal ultrasound ordered to rule out obstructing stone due to solitary kidney
- Continue IV CTX, trend CBC and temperature curve, follow urine culture
- Follow-up renal ultrasound
#Nonoliguric JAVED
#Hyperkalemia
#S/p left nephrectomy
- Presented with creatinine 2.8 that is up trended to 3.5; differentials include intrinsic versus obstructive
- Unknown pharmacodynamics/kinetics concerning which agent he was receiving at the [facility] for his cancer
- Was started on IV fluids upon arrival, creatinine is continue to worsen, though still producing urine
- Nephrology following, recommended urologic consultation for consideration of percutaneous nephrostomy
- Continue with IV fluids, trend BMP and UOP closely
- Avoid nephrotoxic agents, temporize K >6 or ECG changes
- F/U [facility] records, which have been requested
#Thrombocytopenia
- Differentials include infection/cancer induced reactive process v. DIC v. APLS; lower suspicion for hemolysis
- Platelet count 46 on arrival, down to 17 today; bilirubin only 1.1; elevated fibrinogen not consistent with DIC
- Evaluated by oncology who sent off antiphospholipid antibodies, direct platelet antibodies
- Peripheral smear with 1+ schistocytes, low suspicion for TTP/HUS or other MAHA process
- Will continue to trend CBC, monitor for bleeding, follow-up APLS Abs and platelet Abs
- Transfusion goals: Platelet count <10K, <50 K with active bleeding
#Euvolemic hyponatremia
- Possibly polydipsia
- Urine osmolality 272 with low urine sodium, unlikely inappropriate ADH
- Serum cortisol levels were elevated, no signs of adrenal failure
- Serum sodium not improving with fluids, stable at 126-128 range
- Continue IV fluids and trend BMP; start 48 ounce daily FR
#Chronic LE edema
- BNP is very high however he does not complain of other symptoms of heart failure
- Abdomen ultrasound and Dopplers were ordered on arrival to rule out IVC thrombus/obstruction
- Urine protein to creatinine ratio 4.9 not consistent with active glomerular process
- Echocardiogram with preserved LVEF, CXR with bilateral effusions
- Add on albumin to a.m. labs to assess degree of third spacing
- Avoid diuretics for now due to significant JAVED
#Metastatic adrenal cancer
- S/p chemoradiation and immunotherapy, also received ablations in the past
- Was improved with experimental trial at the [facility] though discharged yesterday as he did not improve
- Will consult oncology for further treatment considerations
- Question if he is at the point of needing hospice, C ongoing
#Hypothyroidism
- Unclear etiology, no known autoimmune history, possibly related to cancer
- Home regimen includes levothyroxine 88 mcg daily, appears stable on this regimen
Diet: Regular
Thromboprophylaxis: SCDs
CODE STATUS: DNR/DNI
Disposition: PT consulted
Anticipated Discharge: > 48 hours
Subjective/Interval History
-
Date of Service: December 17, 2024
Seen and examined at the bedside. No acute events reported overnight. AFVSS this morning
Platelet count down to 17, no bleeding reported. Renal function continuing to worsen with creatinine up to 3.5.
Patient denies any new complaints this morning. States he is passing urine okay
Objective Data
-
Labs:
Laboratory Results
12/17/24 12/17/24
06:07 10:31
WBC 16.4 H
Hgb 10.5 L
Hct 31.6 L
Plt Count 17 L* D
PT Cancelled 23.6 H
INR Cancelled 2.09
APTT Cancelled 39.7 H
Sodium 126 L
Potassium 5.3 H
Chloride 101
Carbon Dioxide 17 L
BUN 107 H*
Creatinine 3.5 H
Glucose 122 H
Calcium 6.9 L*
Vital Signs:
Vital Signs
Temp Pulse Resp BP Pulse Ox
97.2 F 70 18 121/67 94
12/17/24 08:13 12/17/24 08:13 12/17/24 08:13 12/17/24 08:13 12/17/24 08:13
I&O
12/16/24 12/17/24 12/18/24
06:59 06:59 06:59
Intake Total 900 / 900
Output Total 200 / 200
Balance 700 / 700
Review of Systems
-
History Source: Patient
All other systems: Reviewed and negative
Physical Exam
-
General: Well Developed, Well Nourished and Appears Chronically Ill
HEENT: Normocephalic, Atraumatic and Moist Mucous Membranes
Respiratory: Clear to Auscultation and Non Labored Respirations; Negative Accessory Resp Muscle Use
Cardiac: Regular Rhythm and S1/S2; Negative Murmur, Rub or Gallop
GI: Soft, Nontender, Nondistended and Normal Bowel Sounds
Genito-urinary: No Costovertebral Tender
Musculoskeletal: No Clubbing, No Cyanosis and No Edema
Skin: Warm and Dry; Negative Rash
Neuro: AO x 3, Nonfocal/Grossly Intact and Central Nerve's Intact
Psych: Calm
Data Reviewed
-
Labs: Labs Reviewed by me, Discussed with Physician (Guest Services Director, urologist) and Discussed with Patient
--- NOTE | 2024-12-17 12:40 | W.PN.NEPH.PH ---
Today's Communication / Plan
-
follow BMP
Assessment/Plan
-
Assessment
JAVED
Hyponatremia
Hyperkalemia
Metabolic acidosis
Hypotension
Edema
Nephrotic range proteinuria
Metastatic adrenal carcinoma
Solitary right kidney, left nephrectomy
mild right hydronephrosis
Plan
Continue IV fluids isotonic
Follow BMP
cortisol 55, stop hydrocortisone
Await additional records from [facility]
urology eval given right solitary kidney hydronephrosis
check PVR, beavers if retention
Prognosis poor
I d/w pt at length his poor prognosis. He thinks he can still get chemo. We discussed potential obstructive uropathy and need for perc nephrostomy +/- beavers. We also discussed dialysis. I told him dialysis was not a good option and would only reduce
any remaining QOL he has.
He is waiting for a cousin from [place] to come and become POA. He does not want his sister to be POA.
Critical care time spent 31 minutes
-
-
Date of Service: December 17, 2024
CC / HPI / ROS
-
Chief Complaint:
JAVED
History of Present Illness:
JAVED/Cr worse to 3.5
K high 5.3
Na low 126
BP improved
Calcium low
critically ill with metastatic end stage adrenal carcinoma
Review of Systems:
no CP/SOB
Labs
-
Labs:
WBC 16.4 10^3/uL (4.8-10.8) H 12/17/24 06:07
RBC 3.40 10^6/uL (4.70-6.10) L 12/17/24 06:07
Hgb 10.5 g/dL (13.0-18.0) L 12/17/24 06:07
Hct 31.6 % (39.0-52.0) L 12/17/24 06:07
Plt Count 17 10^3/uL (130-400) L* D 12/17/24 06:07
Sodium 126 mmol/L (135-145) L 12/17/24 06:07
Potassium 5.3 mmol/L (3.5-5.1) H 12/17/24 06:07
Chloride 101 mmol/L (98-107) 12/17/24 06:07
Carbon Dioxide 17 mmol/L (22-30) L 12/17/24 06:07
BUN 107 mg/dl (9-20) H* 12/17/24 06:07
Creatinine 3.5 mg/dL (0.7-1.3) H 12/17/24 06:07
eGFR 17.35 12/17/24 06:07
Glucose 122 mg/dl (70-99) H 12/17/24 06:07
Calcium 6.9 mg/dl (8.4-10.2) L* 12/17/24 06:07
Ptg-H-Qpwolnxkkws Pept > 10737 pg/ml 12/16/24 09:35
Physical Exam
-
Vital Signs:
Vital Signs
Temp Pulse Resp BP Pulse Ox
97.2 F 70 18 121/67 94
12/17/24 08:13 12/17/24 08:13 12/17/24 08:13 12/17/24 08:13 12/17/24 08:13
Cardiovascular:: Regular rate and rhythm
Lung Excursion:: Normal
Abdomen:: Nontender and Soft
Bowel Sounds:: Normal
Extremity Edema:: None: Bilateral:
[2024-12-17 12:52] VITALS: BMI 25.3
[2024-12-17] MEDS: D5/0.9% SODIUM CHLORIDE IV (13:26)
[2024-12-17] MEDS: CALCIUM GLUCONATE 290 MG IV (13:52)
[2024-12-17] MEDS: SODIUM BICARBONATE 1150 MEQ IV (13:52)
--- NOTE | 2024-12-17 13:57 | W.PN.URO.CBU ---
Today's Communication / Plan
-
will awaoit ashley madrid await cx of urine
Diagnosis
-
Date of Service: December 17, 2024
-
Patient Diagnosis:asha in pt with solitay rt kidney amd metastaic aenal canver withexperimeyt protocol naow creatinine 0.9 to 2.8 and 3.5 iu/s notes medical disease mild hydro pt woth 17 k pts and ua and cx pos
Post Op Day:
Subjective
-
no colic no hematuria
Objective
-
Vital Signs
Temp Pulse Resp BP Pulse Ox
97.2 F 70 18 121/67 94
12/17/24 08:13 12/17/24 08:13 12/17/24 08:13 12/17/24 08:13 12/17/24 08:13
Intake and Output
12/16/24 12/17/24 12/18/24
06:59 06:59 06:59
Intake Total 900 / 900
Output Total 200 / 200
Balance 700 / 700
Intake:
IV fluids (Total) 900 / 900
Output:
Urine, Voided 200 / 200
Laboratory Results
12/17/24 06:07
12/17/24 06:07
Review of Systems
-
: No Symptoms
Physical Exam
-
General - well developed, well nourished, no acute distress
Chest - clear bilaterally
Abdomen - soft, non-tender, positive bowel sounds, no CVAT, no incisional pain or distention
Genitalia - normal
Rectal - normal
Skin - warm & dry with no rash
Neuro - AOx3, no motor deficits
Extremities - no clubbing, no cyanosis, no edema
Incision - clean, dry
Dressing - clean, dry, intact
Counseling
-
await ct scan
Care Review
Data Reviewed
Discussed with: Hospitalist and Nursing
Ultrasound: Image Pers Reviewed
[2024-12-17 14:49] LABS: Albumin 2.2 g/dl (3.5-5.0)
[2024-12-17 15:01] VITALS: BP 138/75
[2024-12-17 17:21] VITALS: BP 134/70
--- NOTE | 2024-12-17 17:26 | PTCARENOTE ---
1 unit of platelets started as ordered. Pt resting comfortably in bed, no signs or symptoms of reaction. Will cont to monitor.
[2024-12-17 17:39] VITALS: BP 125/70
[2024-12-17 18:13] VITALS: BP 121/71
[2024-12-17] MEDS: COLACE PO (20:40)
[2024-12-18] VITALS (18 sets, daily range): BP systolic 89–132; BP diastolic 50–80
[2024-12-18 06:18] LABS: Hematocrit 36.0 % (39.0-52.0); Hemoglobin 12.7 g/dL (13.0-18.0); Mean Corp Hgb Conc. 35.3 g/dL (33.0-37.0); Mean Corpuscular Volume 87.4 fL (80.0-94.0); Nucleated Red Blood Cells % 0 % (-); Platelet Count 23 10^3/uL (130-400); Red Cell Dist. Width 17.2 % (11.5-14.5)
[2024-12-18] MEDS: ROCEPHIN 1000 MG IV (06:21)
[2024-12-18] MEDS: STERILE WATER FOR INJECTION 10 ML IV (06:21)
[2024-12-18] MEDS: SYNTHROID 88 MCG PO (06:22)
[2024-12-18 06:35] LABS: ALT (SGPT) 28 U/L (0-50); AST (SGOT) 53 U/L (17-59); Albumin 2.4 g/dl (3.5-5.0); Alkaline Phosphatase 181 U/L (38-126); Calcium 7.1 mg/dl (8.4-10.2); Carbon Dioxide 17 mmol/L (22-30); Chloride 100 mmol/L (98-107); Glucose 92 mg/dl (70-99); Potassium 5.2 mmol/L (3.5-5.1); Sodium 136 mmol/L (135-145); Total Protein 4.6 g/dl (6.3-8.2)
[2024-12-18 06:52] LABS: Blood Urea Nitrogen 120 mg/dl (9-20); Estimated Creatinine Clearance 17 ml/min; eGFR 16.77
--- NOTE | 2024-12-18 07:30 | PTCARENOTE ---
Pt does not make any attempts OOB. Pt rings for assistance. Call martinez within close reach. No bed alarm placed.
--- NOTE | 2024-12-18 08:38 | W.PN.URO.CBU ---
Today's Communication / Plan
-
op room
Assessment / Plan
-
obstructing stone solitary kideny will attmept removal and or just steting
Diagnosis
-
Date of Service: December 18, 2024
-
Patient Diagnosis:
Post Op Day:
Patient Diagnosis:asha in pt with solitay rt kidney amd metastaic aenal canver withexperimeyt protocol naow creatinine 0.9 to 2.8 and 3.5 iu/s notes medical disease mild hydro pt woth 17 k pts and ua and cx pos
Post Op Day:
ctscan las t p, ree,led obsgtruting stome of solitary kidney
Subjective
-
no colic
Objective
-
Vital Signs
Temp Pulse Resp BP Pulse Ox
97.4 F 77 30 132/73 93
12/18/24 08:05 12/18/24 08:05 12/18/24 08:05 12/18/24 08:05 12/18/24 08:05
Intake and Output
12/17/24 12/18/24 12/19/24
06:59 06:59 06:59
Intake Total 900 / 900 613 / 613
Output Total 200 / 200 550 / 550 500 / 500
Balance 700 / 700 63 / 63 -500 / -500
Intake:
Oral fluids 240 / 240
IV fluids (Total) 900 / 900
Blood Product Amount Infused ( 373 / 373
mL)
Pathogen Redu Plt Leukored 373 / 373
Unit [id number]
Output:
Urine, Voided 200 / 200 550 / 550 500 / 500
Laboratory Results
12/18/24 05:31
12/18/24 05:31
Review of Systems
-
: No Symptoms
Physical Exam
-
General - well developed, well nourished, no acute distress
Chest - clear bilaterally
Abdomen - soft, non-tender, positive bowel sounds, no CVAT, no incisional pain or distention
Genitalia - normal
Rectal - normal
Skin - warm & dry with no rash
Neuro - AOx3, no motor deficits
Extremities - no clubbing, no cyanosis, no edema
Incision - clean, dry
Dressing - clean, dry, intact
Care Review
Data Reviewed
Discussed with: Hospitalist and Nursing
--- NOTE | 2024-12-18 08:45 | PTCARENOTE ---
In anticipation of OR, pt bathed, CHG wipes provided, gown and linens changed. Report provided to FORECLOSURE FIELD INSPECTOR.
--- NOTE | 2024-12-18 09:00 | PTCARENOTE ---
Blood bank called and informed this RN that they have to order platelets, they will call unit when platelets are delivered and ready.
--- NOTE | 2024-12-18 09:14 | CM ---
Patient unavailable
OR this am
[facility]
no preauth needed
PLAN: SNF, pending bed availability when stable
--- NOTE | 2024-12-18 10:04 | W.SUR.POST ---
Surgical Immediate Post Op
Note
Pre Op Diagnosis: rt uretral stone with obstruction
Post Op Diagnosis:same
Procedure Performed: rt uretroscopy stone manipuation jj stent rgp
Primary Surgeon: matheus
Secondary Surgeons:
Anesthesia: katin general
Estimated Blood Loss: 2
Fluids: nss
Drains/Shunts: 4.7 24 fr jj syent
Specimens/Cultures: 0
Doppler/Duplex/Angio (Y/N):
Complications: 0
Operative Findings: tirtuos uretr could not safely remove stone so stent placed alog stent to remove obstrucion will go back to op rom as creatinne hopfully returns to baseline
--- NOTE | 2024-12-18 11:05 | PTCARENOTE ---
Received pt from OR. Drowsy. No complaints of pain. Will initiate post op vital signs.
--- NOTE | 2024-12-18 11:34 | W.PN.HOSP.TC ---
Addendum entered and electronically signed by Abhishek Spring DO 12/19/24 12:38:
CDI: Severe protein calorie malnutrition present
Original Note:
Today's Communication/Plan
-
Continue IV antibiotics
Continue light IV fluids with bicarbonate
Trend BMP and urine output closely
Transfuse platelets as needed
Follow-up APLS and antiplatelet antibodies
Assessment / Plan
Assessment / Plan
#Urinary tract infection
#Left nephrolithiasis
#Solitary kidney, s/p left nephrectomy
- Presented with markedly positive urinalysis, leukocytosis, low-grade fever
- Urine culture obtained in the ED and started on IV ceftriaxone empirically
- Imaging with obstructing left ureterolithiasis; s/p stent with urology on 12/18
- Urine culture with E. coli resistant to ampicillin, ampicillin/sulbactam, indeterminant to cefazolin
- Continue IV CTX, trend CBC and temperature curve for now
- Plan for Augmentin 875-125 mg to complete 14-day course of antibiotics
#Obstructive JAVED
#NAGMA
#Hyperkalemia
#S/p left nephrectomy
- Presented with creatinine 2.8 that is up trended to 3.6; likely related to obstructive nephrolithiasis, hydronephrosis on US
- Was started on IV fluids upon arrival, creatinine is continue to worsen, though has produced urine without oliguria
- Nephrology and urology following, had ureteral stent placed with urology on 12/18/2024
- Continue with light IV fluids (now bicarb drip), trend BMP and UOP closely
- Avoid nephrotoxic agents, temporize K >6 or ECG changes
#Thrombocytopenia
- Differentials include infection/cancer induced reactive process v. DIC v. APLS; lower suspicion for hemolysis
- Platelet count 46 on arrival, down to 17 today; bilirubin only 1.1; elevated fibrinogen not consistent with DIC
- Evaluated by oncology who sent off antiphospholipid antibodies, direct platelet antibodies
- Peripheral smear with 1+ schistocytes, low suspicion for TTP/HUS or other MAHA process
- Will continue to trend CBC, monitor for bleeding, follow-up APLS Abs and platelet Abs
- 2 units of platelets have been ordered here due to need for OR intervention
- Transfusion goals: Platelet count <10K, <50 K with active bleeding
#Euvolemic hyponatremia
- Possibly polydipsia
- Urine osmolality 272 with low urine sodium, unlikely inappropriate ADH
- Serum cortisol levels were elevated, no signs of adrenal failure
- Serum sodium not improving with fluids, stable at 126-128 range
- Resolved with fluid restricted diet
#Chronic LE edema
- BNP is very high however he does not complain of other symptoms of heart failure
- Abdomen ultrasound and Dopplers were ordered on arrival to rule out IVC thrombus/obstruction
- Urine protein to creatinine ratio 4.9 not consistent with active glomerular process
- Echocardiogram with preserved LVEF, CXR with bilateral effusions
- Add on albumin to a.m. labs to assess degree of third spacing
- Avoid diuretics for now due to significant JAVED
- May need to start diuretics as renal function starts to improve
#Metastatic adrenal cancer
- S/p chemoradiation and immunotherapy, also received ablations in the past
- Was improved with experimental trial at the [facility] though discharged yesterday as he did not improve
- Will consult oncology for further treatment considerations
- Question if he is at the point of needing hospice, GOC ongoing
#Hypothyroidism
- Unclear etiology, no known autoimmune history, possibly related to cancer
- Home regimen includes levothyroxine 88 mcg daily, appears stable on this regimen
Diet: Regular
Thromboprophylaxis: SCDs
CODE STATUS: DNR/DNI
Disposition: PT consulted
Anticipated Discharge: > 48 hours
Subjective/Interval History
-
Date of Service: December 18, 2024
Seen and examined at the bedside. No acute events reported overnight. AFVSS this morning
Platelets increased to 23K following transfusion yesterday. Was taken to the OR today where ureteral stent was placed for decompression of solitary kidney, stone unable to be extracted
Patient denies any new medical complaints today
Objective Data
-
Labs:
Laboratory Results
12/18/24
05:31
WBC 17.3 H
Hgb 12.7 L D
Hct 36.0 L
Plt Count 23 L* D
Sodium 136 D
Potassium 5.2 H
Chloride 100
Carbon Dioxide 17 L
BUN 120 H*
Creatinine 3.6 H
Glucose 92
Calcium 7.1 L
Total Bilirubin 1.0
AST 53
ALT 28
Alkaline Phosphatase 181 H
Vital Signs:
Vital Signs
Temp Pulse Resp BP Pulse Ox
97.3 F 71 15 101/62 95
12/18/24 10:50 12/18/24 10:45 12/18/24 10:45 12/18/24 10:45 12/18/24 10:45
I&O
12/17/24 12/18/24 12/19/24
06:59 06:59 06:59
Intake Total 900 / 900 613 / 613 50 / 50
Output Total 200 / 200 550 / 550 625 / 625
Balance 700 / 700 63 / 63 -575 / -575
Review of Systems
-
History Source: Patient
All other systems: Reviewed and negative
Physical Exam
-
General: Well Developed, No Apparent Distress and Appears Chronically Ill
HEENT: Normocephalic, Atraumatic, Moist Mucous Membranes and Anicteric
Respiratory: Clear to Auscultation and Non Labored Respirations; Negative Accessory Resp Muscle Use
Cardiac: Regular Rhythm and S1/S2; Negative Murmur, Rub or Gallop
GI: Soft, Nontender, Normal Bowel Sounds and Distended
Musculoskeletal: No Clubbing, No Cyanosis and Other (1-2+ LE edema)
Skin: Warm and Dry; Negative Rash or Jaundice
Neuro: AO x 3, Nonfocal/Grossly Intact and Central Nerve's Intact
Psych: Calm
Data Reviewed
-
Labs: Labs Reviewed by me and Discussed with Physician (Urologist)
[2024-12-18] MEDS: COLACE 100 MG PO (11:37)
[2024-12-18] MEDS: NON-FORMULARY ITEM 1 UNIT PO (11:38)
--- NOTE | 2024-12-18 13:03 | PTCARENOTE ---
PCT unable to obtain temp, this RN obtained rectal temp, result=95.0. MD made aware. Will recheck in 1 hour.
--- NOTE | 2024-12-18 13:41 | W.PN.NEPH.PH ---
Today's Communication / Plan
-
follow BMP
Assessment/Plan
-
Assessment
JAVED
Hyponatremia
Hyperkalemia
Metabolic acidosis
Hypotension
Edema
Nephrotic range proteinuria
Metastatic adrenal carcinoma
Solitary right kidney, left nephrectomy
mild right hydronephrosis
Plan
Continue IV fluids isotonic
Follow BMP
BUN rising may partly be from HC
Prognosis poor
I previously d/w pt at length his poor prognosis. He thinks he can still get chemo. We discussed potential obstructive uropathy and need for perc nephrostomy +/- beavers. We also discussed dialysis. I told him dialysis was not a good option and would
only reduce any remaining QOL he has.
He is waiting for a cousin from [place] to come and become POA. He does not want his sister to be POA.
Critical care time spent 31 minutes
-
-
Date of Service: December 18, 2024
CC / HPI / ROS
-
Chief Complaint:
JAVED
History of Present Illness:
JAVED/Cr worse to 3.6
BUN up to 120
K high 5.2
Na normal
BP improved
plts 23
s/p OR for ureteral stent right 12/18
Review of Systems:
no CP/SOB
gross hematuria
Labs
-
Labs:
WBC 17.3 10^3/uL (4.8-10.8) H 12/18/24 05:31
RBC 4.12 10^6/uL (4.70-6.10) L 12/18/24 05:31
Hgb 12.7 g/dL (13.0-18.0) L D 12/18/24 05:31
Hct 36.0 % (39.0-52.0) L 12/18/24 05:31
Plt Count 23 10^3/uL (130-400) L* D 12/18/24 05:31
Sodium 136 mmol/L (135-145) D 12/18/24 05:31
Potassium 5.2 mmol/L (3.5-5.1) H 12/18/24 05:31
Chloride 100 mmol/L (98-107) 12/18/24 05:31
Carbon Dioxide 17 mmol/L (22-30) L 12/18/24 05:31
BUN 120 mg/dl (9-20) H* 12/18/24 05:31
Creatinine 3.6 mg/dL (0.7-1.3) H 12/18/24 05:31
eGFR 16.77 12/18/24 05:31
Glucose 92 mg/dl (70-99) 12/18/24 05:31
Calcium 7.1 mg/dl (8.4-10.2) L 12/18/24 05:31
Dlz-P-Avkpthimomw Pept > 54771 pg/ml 12/16/24 09:35
Albumin 2.4 g/dl (3.5-5.0) L 12/18/24 05:31
Physical Exam
-
Vital Signs:
Vital Signs
Temp Pulse Resp BP Pulse Ox
95.0 F L 71 15 101/62 95
12/18/24 13:04 12/18/24 10:45 12/18/24 10:45 12/18/24 10:45 12/18/24 10:45
Cardiovascular:: Regular rate and rhythm
Respiratory:: Bilateral: Coarse
Lung Excursion:: Normal
Abdomen:: Nontender and Soft
Bowel Sounds:: Normal
Extremity Edema:: +1: Bilateral:
--- NOTE | 2024-12-18 18:19 | PTCARENOTE ---
1 unit of platelets started as ordered. Pt resting comfortably in bed, no signs or symptoms of reaction. Will continue to monitor.
[2024-12-18] MEDS: SODIUM BICARBONATE 1150 MEQ IV (18:23)
--- NOTE | 2024-12-18 18:59 | PTCARENOTE ---
Bloody urine observed in urinal, urology aware.
[2024-12-18] MEDS: COLACE PO (19:47)
--- NOTE | 2024-12-18 23:35 | VATNOTE ---
called by PCN about Large infiltrate in the Left Post basilic arm area. Unknow if old IV site was near area. Pt not c/o pain. PCN advised to apply heat to infiltrated area and elevate.
[2024-12-19] MEDS: SYNTHROID 88 MCG PO (05:46)
[2024-12-19] MEDS: ROCEPHIN 1000 MG IV (05:46)
[2024-12-19] MEDS: STERILE WATER FOR INJECTION 10 ML IV (05:46)
[2024-12-19 06:00] VITALS: BMI 25.7
[2024-12-19 07:25] VITALS: BP 132/72
[2024-12-19 07:25] LABS: ALT (SGPT) 24 U/L (0-50); AST (SGOT) 37 U/L (17-59); Albumin 2.4 g/dl (3.5-5.0); Alkaline Phosphatase 181 U/L (38-126); Calcium 6.2 mg/dl (8.4-10.2); Carbon Dioxide 22 mmol/L (22-30); Chloride 97 mmol/L (98-107); Glucose 71 mg/dl (70-99); Potassium 5.4 mmol/L (3.5-5.1); Sodium 130 mmol/L (135-145); Total Protein 4.6 g/dl (6.3-8.2)
[2024-12-19 07:31] LABS: Blood Urea Nitrogen 136 mg/dl (9-20); Estimated Creatinine Clearance 16 ml/min; eGFR 15.23
[2024-12-19 07:58] LABS: Hematocrit 35.8 % (39.0-52.0); Hemoglobin 12.3 g/dL (13.0-18.0); Mean Corp Hgb Conc. 34.4 g/dL (33.0-37.0); Mean Corpuscular Volume 88.2 fL (80.0-94.0); Nucleated Red Blood Cells % 0 % (-); Platelet Count 17 10^3/uL (130-400); Red Cell Dist. Width 17.2 % (11.5-14.5)
[2024-12-19] MEDS: TYLENOL 650 MG PO (08:26)
[2024-12-19] MEDS: COLACE PO ×3 (08:26→19:44)
[2024-12-19] MEDS: NON-FORMULARY ITEM 1 UNIT PO (08:27)
--- NOTE | 2024-12-19 08:59 | W.PN.HOSP.TC ---
Today's Communication/Plan
-
Continue light IV fluids
Continue IV antibiotics for now
Trend kidney function and urine output closely
Supportive transfusion of platelets if bleeding
Goals of care ongoing
Assessment / Plan
Assessment / Plan
#Urinary tract infection
#Left nephrolithiasis
#Solitary kidney, s/p left nephrectomy
- Presented with markedly positive urinalysis, leukocytosis, low-grade fever
- Urine culture obtained in the ED and started on IV ceftriaxone empirically
- Imaging with obstructing left ureterolithiasis; s/p stent with urology on 12/18
- Urine culture with E. coli resistant to ampicillin, ampicillin/sulbactam, indeterminant to cefazolin
- Continue IV CTX, trend CBC and temperature curve for now
- Plan for Augmentin 875-125 mg to complete 14-day course of antibiotics
#Obstructive JAVED
#NAGMA
#Hyperkalemia
#S/p left nephrectomy
- Presented with creatinine 2.8 that is up trended to 3.9; likely related to obstructive nephrolithiasis possibly degree of ATN
- Was started on IV fluids upon arrival, creatinine continues to worsen, without oliguria
- Nephrology and urology following, had ureteral stent placed with urology on 12/18/2024
- Creatinine slightly up trended from yesterday, remains with good UOP 600 mL overnight
- Continue with light IV fluids (now bicarb drip), trend BMP and UOP closely
- Avoid nephrotoxic agents, temporize K >6 or ECG changes
#Thrombocytopenia
- Differentials include infection/cancer induced reactive process v. DIC v. APLS; lower suspicion for hemolysis
- Platelet count 46 on arrival, down to 17 today; bilirubin only 1.1; elevated fibrinogen not consistent with DIC
- Evaluated by oncology who sent off antiphospholipid antibodies, direct platelet antibodies
- Peripheral smear with 1+ schistocytes, low suspicion for TTP/HUS or other MAHA process
- Will continue to trend CBC, monitor for bleeding, follow-up APLS Abs and platelet Abs
- 2 units of platelets have been ordered here due to need for OR intervention
- Transfusion goals: Platelet count <10K, <50 K with active bleeding
#Euvolemic hyponatremia
- Possibly polydipsia
- Urine osmolality 272 with low urine sodium, unlikely inappropriate ADH
- Serum cortisol levels were elevated, no signs of adrenal failure
- Serum sodium not improving with fluids, stable at 126-128 range
- Resolved with fluid restricted diet
#Hypocalcemia
-Calcium this morning 6.2 on BMP, albumin low though likely deficient
-Recent studies recommend against corrected calcium, will check ionized calcium
-Replete with IV calcium gluconate as needed, monitor for symptom
#Chronic LE edema
- BNP is very high however he does not complain of other symptoms of heart failure
- Abdomen ultrasound and Dopplers were ordered on arrival to rule out IVC thrombus/obstruction
- Urine protein to creatinine ratio 4.9 not consistent with active glomerular process
- Echocardiogram with preserved LVEF, CXR with bilateral effusions
- Add on albumin to a.m. labs to assess degree of third spacing
- Avoid diuretics for now due to significant JAVED
- May need to start diuretics as renal function starts to improve
#Metastatic adrenal cancer
- S/p chemoradiation and immunotherapy, also received ablations in the past
- Was improved with experimental trial at the [facility] though discharged yesterday as he did not improve
- Will consult oncology for further treatment considerations
- Question if he is at the point of needing hospice, C ongoing
#Hypothyroidism
- Unclear etiology, no known autoimmune history, possibly related to cancer
- Home regimen includes levothyroxine 88 mcg daily, appears stable on this regimen
Diet: Regular
Thromboprophylaxis: SCDs
CODE STATUS: DNR/DNI
Disposition: SNF when medically stable
Poor prognosis. Patient still with intentions of receiving chemotherapy. Hemodialysis was discussed however not a good option for his quality of life. Goals of care ongoing
Anticipated Discharge: > 48 hours
Subjective/Interval History
-
Date of Service: December 19, 2024
Seen and examined at the bedside. No acute events reported overnight. AFVSS this morning
Platelet count back down to 17K following procedure. No bleeding reported at this time. Patient states pain is minimal
Creatinine continues to uptrend, patient states he is putting out adequate urine volumes
Denies any new complaints this morning including chest pain, dyspnea, fevers or chills
Objective Data
-
Labs:
Laboratory Results
12/19/24 12/19/24
06:12 08:47
WBC 12.6 H
Hgb 12.3 L
Hct 35.8 L
Plt Count 17 L* D
APTT Pending
Sodium 130 L
Potassium 5.4 H
Chloride 97 L
Carbon Dioxide 22
BUN 136 H*
Creatinine 3.9 H
Glucose 71
Calcium 6.2 L*
Total Bilirubin 1.0
AST 37
ALT 24
Alkaline Phosphatase 181 H
Vital Signs:
Vital Signs
Temp Pulse Resp BP Pulse Ox
96.5 F L 75 16 132/72 94
12/19/24 07:25 12/19/24 07:25 12/19/24 07:25 12/19/24 07:25 12/19/24 07:25
I&O
12/18/24 12/19/24 12/20/24
06:59 06:59 06:59
Intake Total 613 / 613 1250 / 1250
Output Total 550 / 550 1285 / 1285
Balance 63 / 63 -35 / -35
Review of Systems
-
History Source: Patient
All other systems: Reviewed and negative
Physical Exam
-
General: Well Developed, No Apparent Distress and Appears Chronically Ill
HEENT: Normocephalic, Atraumatic, Moist Mucous Membranes and Anicteric
Respiratory: Clear to Auscultation and Non Labored Respirations; Negative Accessory Resp Muscle Use
Cardiac: Regular Rhythm and S1/S2; Negative Murmur, Rub or Gallop
GI: Nontender, Normal Bowel Sounds and Distended
Musculoskeletal: No Clubbing, No Cyanosis and Other (1-2+ LE edema)
Skin: Warm and Dry; Negative Rash or Jaundice
Neuro: AO x 3, Nonfocal/Grossly Intact and Central Nerve's Intact; Negative Tremors
Psych: Calm
Data Reviewed
-
Labs: Labs Reviewed by me and Discussed with Physician (Nephrology, urology)
--- NOTE | 2024-12-19 09:56 | PN.CDI ---
CDI
- -
CDI:
Physician Documentation Request
Admit Date: 12/16/24 07:57
Dear Doctor Saw,
Please review the following and provide your response in the progress notes.
Clinical Indicators:
Pt admitted with Sepsis / JAVED/UTI pt on IV ceftriaxone
Nutrition consult 12/17 .'Suspect pt has been unable to meet estimated needs given level of fatigue noted at meal. Pt meets criteria for severe protein calorie malnutrition with prolonged inadequate intake <75% for >1month, severe loss subcutaneous
fat (orbital) & muscle (temporal, buccal, clavicle). Nutrition to follow goals of care, consider po supplement when hyponatremia improved....'
Based on the above information and your assessment, which of the following most accurately represents the patient's nutritional status?
Severe Protein Calorie Malnutrition (specify if mild, moderate or severe)
Other (please specify)
[place] Criteria (ACP Hospitalist 2017)
2 or more criteria must be present for either
non severe or severe malnutrition
Note that the criteria differs related to the
presence of an acute or chronic illness
Acute Illness Chronic Illness
Energy Intake Non Severe: <75% for >7 days Non Severe: <75% for >1 month
Severe: <50% for >5 days Severe: <75% for >1 month
Weight Loss Non Severe: 1-2% over 1 week Non Severe: 5% over 1 month
5% over 1 month 7.5% over 3 months
7.5% over 3 months 10% over 6 months
1 year N/A 20% over 1 year
Severe: >2% over 1 week Severe: >5% over 1 month
>5% over 1 month >7.5% over 3 months
>7.5% over 3 months >10% over 6 months
1 year N/A >20% over 1 year
Body Fat Non Severe: Mild Decrease Non Severe: Mild Loss
Severe: Moderate Decrease Severe: Severe Loss
Muscle Mass Non Severe: Mild Decrease Non Severe: Mild Loss
Severe: Moderate Decrease Severe: Severe Loss
Fluid Accumulation Non Severe: Mild Accumulation Non Severe: Mild Accumulation
Severe: Moderate to severe Severe: Moderate to severe
accumulation accumulation
Reduced Cycle Repairer Strength Non Severe: N/A Non Severe: N/A
Severe: Measurably reduced Severe: Measurably reduced
Use of terms such as suspected, likely, concern for, or probable (associated with a specific diagnosis that is being evaluated, monitored, or treated as if it exists) are acceptable and can be coded in the inpatient setting, when documented at the
time of discharge.
Thank you,
Patricia Cleary RN
CDI Specialist
[place] [facility]
Please use your independent medical judgment in providing your response.
[2024-12-19 10:10] LABS: APTT 36.1 Sec (23.4-35.0)
[2024-12-19] MEDS: ROXICODONE 5 MG PO (10:26)
[2024-12-19 11:31] VITALS: BP 127/67
--- NOTE | 2024-12-19 12:45 | W.PN.URO.CBU ---
Today's Communication / Plan
-
doing poorly no guinteventios
Assessment / Plan
-
creatine bun higher depspite stent suggest med renal diease and some obstruvion from massive tumor t/c hospice obstructing stone solitary kideny will attmept removal and or just steting
Diagnosis
-
Date of Service: December 19, 2024
-
Patient Diagnosis:
Post Op Day:
Patient Diagnosis:
Post Op Day:
Patient Diagnosis:asha in pt with solitay rt kidney amd metastaic aenal canver withexperimeyt protocol naow creatinine 0.9 to 2.8 and 3.5 iu/s notes medical disease mild hydro pt woth 17 k pts and ua and cx pos
Post Op Day:
ctscan las t p, ree,led obsgtruting stome of solitary kidney
Subjective
-
stent discomfort
Objective
-
Vital Signs
Temp Pulse Resp BP Pulse Ox
97.5 F 74 16 127/67 94
12/19/24 11:31 12/19/24 11:31 12/19/24 11:31 12/19/24 11:31 12/19/24 11:31
Intake and Output
12/18/24 12/19/24 12/20/24
06:59 06:59 06:59
Intake Total 613 / 613 1250 / 1250
Output Total 550 / 550 1285 / 1285
Balance 63 / 63 -35 / -35
Intake:
Oral fluids 240 / 240 900 / 900
IV fluids (Total) 50 / 50
normosol 50 / 50
Blood Product Amount Infused ( 373 / 373 300 / 300
mL)
Pathogen Redu Plt Leukored 300 / 300
Unit [id number]
Pathogen Redu Plt Leukored 373 / 373
Unit [id number]
Output:
Urine, Voided 550 / 550 1285 / 1285
Laboratory Results
12/19/24 06:12
12/19/24 06:12
Review of Systems
-
: Dysuria and Bleeding
Physical Exam
-
General - well developed, well nourished, no acute distress
Chest - clear bilaterally
Abdomen - soft, non-tender, positive bowel sounds, no CVAT, no incisional pain or distention
Genitalia - normal
Rectal - normal
Skin - warm & dry with no rash
Neuro - AOx3, no motor deficits
Extremities - no clubbing, no cyanosis, no edema
Incision - clean, dry
Dressing - clean, dry, intact
Counseling
-
no gu schanges
--- NOTE | 2024-12-19 13:57 | W.PN.ONC2 ---
Today's Communication / Plan
-
Continue to treat urosepsis (underlying cause of possible DIC), per primary team
Platelet antibody, APLS pending
Review of outside records from [facility] by attending pending
Impression
Impression
#Thrombocytopenia�reactive 2/2 sepsis/metastatic cancer vs. DIC vs. ITP vs. TTP/HUS
#Metastatic adrenal cancer
Plan
Plan
#Thrombocytopenia�reactive 2/2 sepsis/metastatic cancer vs. DIC vs. ITP vs. TTP/HUS
#Metastatic adrenal cancer
ISTH criteria for DIC (7 points) compatible with overt DIC despite no clear signs of thrombosis
Continue to treat underlying cause of possible DIC (urosepsis)
TTP/HUS unlikely given normal T. bili, minimal schistocytes, no physical exam findings of hemolytic anemia
Platelets 17 today s/p 2 units platelets (46 > 17 > 23 > 17)
Platelet antibody panel, APLS panel pending
Blood smear: 1+ schistocytes; luis angel cells; large platelets
Labs: Fibrinogen 479, INR 2.09, PTT 39.7, T. bili 1.0, D-dimer 8.28
Attending review of outside records from [facility] pending
Subjective/Objective
Chief Complaint
Failure to thrive
Subjective
Patient is seen at the bedside on hospital day #4. Patient continues to feel fatigued and short of breath. NAEO. Patient endorses hematuria and minor blood per rectum related to hemorrhoids, though this is not new for him. No other signs of
bleeding. Denies fever or chills.
Vital Signs:
Vital Signs
Temp Pulse Resp BP Pulse Ox
97.5 F 74 16 127/67 94
12/19/24 11:31 12/19/24 11:31 12/19/24 11:31 12/19/24 11:31 12/19/24 11:31
Lab Results:
Laboratory Data
WBC 12.6 10^3/uL (4.8-10.8) H 12/19/24 06:12
Hgb 12.3 g/dL (13.0-18.0) L 12/19/24 06:12
Plt Count 17 10^3/uL (130-400) L* D 12/19/24 06:12
PT 23.6 Sec (11.4-14.6) H 12/17/24 10:31
INR 2.09 12/17/24 10:31
APTT 36.1 Sec (23.4-35.0) H 12/19/24 08:47
eGFR 15.23 12/19/24 06:12
Physical Exam
HEENT: No Jaundice
Cardiology: S1 and S2
Pulmonary: Clear
GI: Distended and Hepatomegaly (Firm right sided abdominal mass consistent with known liver metastasis); No Spleenomegaly
Extremities: Pulses Present; No Phlebitic Signs
Neuro: Non Focal
Review of Systems
Review of Systems
Constitutional: Reports Fatigue; Denies Fever
Respiratory: Reports Dyspnea
Genitourinary: Reports Hematuria
Hem/Lymphatic: Denies Easy Bruising
--- NOTE | 2024-12-19 14:45 | W.PN.NEPH.PH ---
Today's Communication / Plan
-
Supportive care
Assessment/Plan
-
Assessment
JAVED
Hyponatremia
Hyperkalemia
Metabolic acidosis
Hypotension
Edema
Nephrotic range proteinuria
Metastatic adrenal carcinoma
Solitary right kidney, left nephrectomy
mild right hydronephrosis
Plan
Follow BMP
BUN rising may partly be from HC
Prognosis poor
I previously d/w pt at length his poor prognosis.
Status post stent continue worsening renal
Patient is not a dialysis candidate as reiterated again today
Continue conservative as patient should be hospice care
He is waiting for a cousin from [place] to come and become POA. He does not want his sister to be POA.
Discontinued IV bicarbonat
Continues to have hematuria pink in color per nurse with platelets of 17 hemoglobin stable
Critical care time spent 31 minutes
-
-
Date of Service: December 19, 2024
CC / HPI / ROS
-
Chief Complaint:
JAVED
History of Present Illness:
JAVED/Cr worse to 3.6
BUN up to 120
K high 5.2
Na normal
BP improved
plts 23
s/p OR for ureteral stent right 12/18
Review of Systems:
no CP/SOB
gross hematuria
Labs
-
Labs:
WBC 12.6 10^3/uL (4.8-10.8) H 12/19/24 06:12
RBC 4.06 10^6/uL (4.70-6.10) L 12/19/24 06:12
Hgb 12.3 g/dL (13.0-18.0) L 12/19/24 06:12
Hct 35.8 % (39.0-52.0) L 12/19/24 06:12
Plt Count 17 10^3/uL (130-400) L* D 12/19/24 06:12
Sodium 130 mmol/L (135-145) L 12/19/24 06:12
Potassium 5.4 mmol/L (3.5-5.1) H 12/19/24 06:12
Chloride 97 mmol/L (98-107) L 12/19/24 06:12
Carbon Dioxide 22 mmol/L (22-30) 12/19/24 06:12
BUN 136 mg/dl (9-20) H* 12/19/24 06:12
Creatinine 3.9 mg/dL (0.7-1.3) H 12/19/24 06:12
eGFR 15.23 12/19/24 06:12
Glucose 71 mg/dl (70-99) 12/19/24 06:12
Calcium 6.2 mg/dl (8.4-10.2) L* 12/19/24 06:12
Guq-E-Jmiriyktwdl Pept > 54364 pg/ml 12/16/24 09:35
Albumin 2.4 g/dl (3.5-5.0) L 12/19/24 06:12
Physical Exam
-
Vital Signs:
Vital Signs
Temp Pulse Resp BP Pulse Ox
97.5 F 74 16 127/67 94
12/19/24 11:31 12/19/24 11:31 12/19/24 11:31 12/19/24 11:31 12/19/24 11:31
Cardiovascular:: Regular rate and rhythm
Respiratory:: Bilateral: Coarse
Lung Excursion:: Normal
Abdomen:: Distended
Bowel Sounds:: Normal
Extremity Edema:: +1: Bilateral:
[2024-12-19] MEDS: SODIUM BICARBONATE IV (15:04)
[2024-12-19 15:23] VITALS: BP 135/68
[2024-12-19 18:33] LABS: Platelet Antibody, Direct IgG Negative (Negative); Platelet Antibody, Direct IgM Negative (Negative)
[2024-12-19] MEDS: DILAUDID 0.5 MG IV (21:38)
[2024-12-19 23:16] VITALS: BP 140/66
[2024-12-20] MEDS: ROCEPHIN 1000 MG IV (05:08)
[2024-12-20] MEDS: SYNTHROID 88 MCG PO (05:09)
[2024-12-20] MEDS: STERILE WATER FOR INJECTION 10 ML IV (05:09)
[2024-12-20 06:00] VITALS: BMI 26.2
[2024-12-20 07:00] LABS: INR 1.49; PT 18.3 Sec (11.4-14.6)
[2024-12-20 07:01] LABS: APTT 31.8 Sec (23.4-35.0); Fibrinogen 403 MG/DL (199-459)
[2024-12-20 07:06] LABS: Hematocrit 36.6 % (39.0-52.0); Hemoglobin 12.0 g/dL (13.0-18.0); Mean Corp Hgb Conc. 32.8 g/dL (33.0-37.0); Mean Corpuscular Volume 94.6 fL (80.0-94.0); Nucleated Red Blood Cells % 0 % (-); Platelet Count 14 10^3/uL (130-400); Red Cell Dist. Width 17.7 % (11.5-14.5)
[2024-12-20 07:10] LABS: D-Dimer 2.92 ug/mlFEU (0.00-0.50)
[2024-12-20 07:20] VITALS: BP 118/62
[2024-12-20 07:40] LABS: Blood Urea Nitrogen 152 mg/dl (9-20); Calcium 5.8 mg/dl (8.4-10.2); Carbon Dioxide 20 mmol/L (22-30); Chloride 99 mmol/L (98-107); Glucose 62 mg/dl (70-99); Potassium 5.5 mmol/L (3.5-5.1); Sodium 129 mmol/L (135-145)
[2024-12-20] MEDS: NON-FORMULARY ITEM 1 UNIT PO (07:51)
[2024-12-20 08:14] LABS: Estimated Creatinine Clearance 16 ml/min; eGFR 15.72
--- NOTE | 2024-12-20 08:37 | W.PN.HOSP.TC ---
Today's Communication/Plan
-
IV fluids and antibiotics
Trend CBC and BMP/UOP
Transfuse platelets <10 or <50 with new bleed
Ongoing goals of care
Assessment / Plan
Assessment / Plan
#Urinary tract infection
#Left nephrolithiasis
#Solitary kidney, s/p left nephrectomy
- Presented with markedly positive urinalysis, leukocytosis, low-grade fever
- Urine culture obtained in the ED and started on IV ceftriaxone empirically
- Imaging with obstructing left ureterolithiasis; s/p stent with urology on 12/18
- Urine culture with E. coli resistant to ampicillin, ampicillin/sulbactam, indeterminant to cefazolin
- Continue IV CTX, trend CBC and temperature curve for now
- Plan for Augmentin 875-125 mg to complete 14-day course of antibiotics
#Obstructive JAVED
#NAGMA
#Hyperkalemia
#S/p left nephrectomy
- Presented with creatinine 2.8 that is up trended to 3.9; likely related to obstructive nephrolithiasis possibly degree of ATN
- Was started on IV fluids upon arrival, creatinine continues to worsen, without oliguria
- Nephrology and urology following, had ureteral stent placed with urology on 12/18/2024
- Creatinine slightly up trended from yesterday, remains with good UOP 600 mL overnight
- Continue with light IV fluids (now bicarb drip), trend BMP and UOP closely
- Avoid nephrotoxic agents, temporize K >6 or ECG changes
#Thrombocytopenia
#Coagulopathy
- Suspect due to sepsis >DIC despite ISTH score 7; fibrinogen WNL, no signs or symptoms of DIC
- Platelet count 46 on arrival, has dropped as low as 14 here; s/p 2 units platelets perioperatively
- Evaluated by oncology who sent off antiphospholipid antibodies, direct platelet antibodies
- Peripheral smear with 1+ schistocytes, low suspicion for TTP/HUS or other MAHA process
- Will continue to trend CBC, monitor for bleeding, follow-up APLS Abs and platelet Abs
- Will consider another unit of platelets today due to hematuria following stent
- Transfusion goals: Platelet count <10K, <50 K with active bleeding
#Euvolemic hyponatremia
- Possibly polydipsia
- Urine osmolality 272 with low urine sodium, unlikely inappropriate ADH
- Serum cortisol levels were elevated, no signs of adrenal failure
- Serum sodium not improving with fluids, stable at 126-128 range
- Resolved with fluid restricted diet
#Hypocalcemia
-Calcium this morning 6.2 on BMP, albumin low though likely deficient
-Recent studies recommend against corrected calcium, will check ionized calcium
-Replete with IV calcium gluconate as needed, monitor for symptom
#Chronic LE edema
- BNP is very high however he does not complain of other symptoms of heart failure
- Abdomen ultrasound and Dopplers were ordered on arrival to rule out IVC thrombus/obstruction
- Urine protein to creatinine ratio 4.9 not consistent with active glomerular process
- Echocardiogram with preserved LVEF, CXR with bilateral effusions
- Add on albumin to a.m. labs to assess degree of third spacing
- Avoid diuretics for now due to significant JAVED
- May need to start diuretics as renal function starts to improve
#Metastatic adrenal cancer
- S/p chemoradiation and immunotherapy, also received ablations in the past
- Was improved with experimental trial at the [facility] though discharged yesterday as he did not improve
- Will consult oncology for further treatment considerations
- Question if he is at the point of needing hospice, C ongoing
#Hypothyroidism
- Unclear etiology, no known autoimmune history, possibly related to cancer
- Home regimen includes levothyroxine 88 mcg daily, appears stable on this regimen
Diet: Regular
Thromboprophylaxis: SCDs
CODE STATUS: DNR/DNI
Disposition: SNF when medically stable
Poor prognosis. Goals of care are ongoing. Patient seems to understand that hospice may be needed sooner than later however he is yet to reach the point mentally where he is ready to transition to that level of care. Will continue to follow daily
with goals of care and provide comfort based medications once he is amenable
Anticipated Discharge: > 48 hours
Subjective/Interval History
-
Date of Service: December 20, 2024
Seen and examined at the bedside. No acute events reported overnight. AFVSS this morning
BUN continues to uptrend though creatinine plateaued. No azotemic symptoms. Platelet count down to 14
Patient denies any new complaints this morning. I discussed his prognosis with him, told him that kidney function continues to not improve and he is not a candidate for dialysis. Initially he mentions 'other things that need to get fixed' however
I spoke with him that he would not be a candidate for chemotherapy with his very poor ECOG status which he understood. He does seem to be aware that he is approaching hospice but is not yet mentally at that point. Will continue to follow with
goals of care
Objective Data
-
Labs:
Laboratory Results
12/20/24
06:35
WBC 11.5 H
Hgb 12.0 L
Hct 36.6 L
Plt Count 14 L*
PT 18.3 H
INR 1.49
APTT 31.8
Sodium 129 L
Potassium 5.5 H
Chloride 99
Carbon Dioxide 20 L
BUN 152 H*
Creatinine 3.8 H
Glucose 62 L
Calcium 5.8 L*
Vital Signs:
Vital Signs
Temp Pulse Resp BP Pulse Ox
97.4 F 70 18 118/62 94
12/20/24 07:20 12/20/24 07:20 12/20/24 07:20 12/20/24 07:20 12/20/24 07:20
I&O
12/19/24 12/20/24 12/21/24
06:59 06:59 06:59
Intake Total 1250 / 1250 360 / 360
Output Total 1285 / 1285 1250 / 1250
Balance -35 / -35 -890 / -890
Review of Systems
-
History Source: Patient
All other systems: Reviewed and negative
Physical Exam
-
General: Well Developed, No Apparent Distress and Appears Chronically Ill
HEENT: Normocephalic, Atraumatic and Moist Mucous Membranes
Respiratory: Clear to Auscultation and Non Labored Respirations; Negative Accessory Resp Muscle Use
Cardiac: Regular Rhythm and S1/S2; Negative Murmur, Rub or Gallop
GI: Soft, Nontender, Normal Bowel Sounds and Distended
Musculoskeletal: No Clubbing, No Cyanosis and Other (1+ edema)
Skin: Warm and Dry; Negative Rash
Neuro: AO x 3 and Nonfocal/Grossly Intact; Negative Central Nerve's Intact
Psych: Calm
Data Reviewed
-
Labs: Labs Reviewed by me, Discussed with Physician (neph), Discussed with Nurse and Discussed with Patient
[2024-12-20] MEDS: CALCIUM GLUCONATE 280 MG IV (09:16)
[2024-12-20] MEDS: COLACE PO (09:21)
[2024-12-20] MEDS: SODIUM BICARBONATE 1150 MEQ IV ×2 (10:07→23:59)
--- NOTE | 2024-12-20 11:32 | W.PN.ONC2 ---
Today's Communication / Plan
-
APLS panel pending
Monitor CBC, clinical status
Consider outpatient follow-up with heme-onc
Impression
Impression
#Thrombocytopenia�reactive 2/2 sepsis/metastatic cancer vs. DIC vs. ITP vs. TTP/HUS
#Metastatic adrenal cancer
Plan
Plan
#Thrombocytopenia�reactive 2/2 sepsis/metastatic cancer vs. DIC vs. ITP vs. TTP/HUS
#Metastatic adrenal cancer
ISTH criteria for DIC (5 points) compatible with overt DIC despite no clear signs of thrombosis
Continue to treat underlying cause of possible DIC (urosepsis)
TTP/HUS unlikely given normal T. bili, minimal schistocytes, no physical exam findings of hemolytic anemia
Platelets 14 today s/p 2 units platelets (46 > 17 > 23 > 17 > 14)
Platelet antibody panel: Negative
APLS panel pending
Blood smear: 1+ schistocytes; luis angel cells; large platelets
Labs: Fibrinogen 403, INR 1.49, PTT 31.8, T. bili 1.0, D-dimer 2.92
Consider follow-up outpatient with heme-onc
Subjective/Objective
Chief Complaint
Thrombocytopenia; metastatic adrenal cancer
Subjective
Patient seen at the bedside on hospital day #5. No current complaints. Feels more encouraged than yesterday. Urine is now pale red after being a darker red in recent days. Endorses some lightheadedness. Denies F/F/C, chest pain, abdominal pain,
hematochezia, melena, hematemesis, hemoptysis, headache, dizziness.
Vital Signs:
Vital Signs
Temp Pulse Resp BP Pulse Ox
97.4 F 70 18 118/62 94
12/20/24 07:20 12/20/24 07:20 12/20/24 07:20 12/20/24 07:20 12/20/24 07:20
Lab Results:
Laboratory Data
WBC 11.5 10^3/uL (4.8-10.8) H 12/20/24 06:35
Hgb 12.0 g/dL (13.0-18.0) L 12/20/24 06:35
Plt Count 14 10^3/uL (130-400) L* 12/20/24 06:35
PT 18.3 Sec (11.4-14.6) H 12/20/24 06:35
INR 1.49 12/20/24 06:35
APTT 31.8 Sec (23.4-35.0) 12/20/24 06:35
eGFR 15.72 12/20/24 06:35
Physical Exam
HEENT: Other (Mild scleral icterus)
Cardiology: S1 and S2
Pulmonary: Clear
GI: Distended (Firm, fixed, right-sided abdominal mass) and Hepatomegaly
Extremities: Pulses Present; No Phlebitic Signs
Neuro: Non Focal
Review of Systems
Review of Systems
Constitutional: Denies Fever or Fatigue
Cardiovascular: Reports Other (Lightheadedness); Denies Chest Pain
Genitourinary: Reports Hematuria (Paler red than yesterday)
Neurological: Denies Headache
--- NOTE | 2024-12-20 11:42 | W.PN.NEPH.PH ---
Today's Communication / Plan
-
Continue supportive care
Assessment/Plan
-
Assessment
JAVED
Hyponatremia
Hyperkalemia
Metabolic acidosis
Hypotension
Edema
Nephrotic range proteinuria
Metastatic adrenal carcinoma
Solitary right kidney, left nephrectomy
mild right hydronephrosis
Plan
Follow BMP
BUN rising may partly be from HC
Prognosis poor
Status post stent continue worsening renal
Patient is not a dialysis candidate as reiterated again today
Continue conservative as patient should be hospice care
He is waiting for a cousin from [place] to come and become POA. He does not want his sister to be POA.
Remains on bicarbonate IV fluids
Unfortunately no further recommendations
-
-
Date of Service: December 20, 2024
CC / HPI / ROS
-
Chief Complaint:
JAVED
History of Present Illness:
JAVED/Cr worse to 3.6
BUN up to 120
K high 5.2
Na normal
BP improved
plts 23
s/p OR for ureteral stent right 12/18
Review of Systems:
no CP/SOB
gross hematuria
Labs
-
Labs:
WBC 11.5 10^3/uL (4.8-10.8) H 12/20/24 06:35
RBC 3.87 10^6/uL (4.70-6.10) L 12/20/24 06:35
Hgb 12.0 g/dL (13.0-18.0) L 12/20/24 06:35
Hct 36.6 % (39.0-52.0) L 12/20/24 06:35
Plt Count 14 10^3/uL (130-400) L* 12/20/24 06:35
Sodium 129 mmol/L (135-145) L 12/20/24 06:35
Potassium 5.5 mmol/L (3.5-5.1) H 12/20/24 06:35
Chloride 99 mmol/L (98-107) 12/20/24 06:35
Carbon Dioxide 20 mmol/L (22-30) L 12/20/24 06:35
BUN 152 mg/dl (9-20) H* 12/20/24 06:35
Creatinine 3.8 mg/dL (0.7-1.3) H 12/20/24 06:35
eGFR 15.72 12/20/24 06:35
Glucose 62 mg/dl (70-99) L 12/20/24 06:35
Calcium 5.8 mg/dl (8.4-10.2) L* 12/20/24 06:35
Ppv-O-Xspnwehrjph Pept > 69606 pg/ml 12/16/24 09:35
Albumin 2.4 g/dl (3.5-5.0) L 12/19/24 06:12
Physical Exam
-
Vital Signs:
Vital Signs
Temp Pulse Resp BP Pulse Ox
97.4 F 70 18 118/62 94
12/20/24 07:20 12/20/24 07:20 12/20/24 07:20 12/20/24 07:20 12/20/24 07:20
Cardiovascular:: Regular rate and rhythm
Respiratory:: Bilateral: Coarse
Lung Excursion:: Normal
Abdomen:: Distended
Bowel Sounds:: Normal
Extremity Edema:: +1: Bilateral:
[2024-12-20 15:53] VITALS: BP 134/66
[2024-12-20] MEDS: MIRALAX 17 GRAMS PO (18:37)
[2024-12-20] MEDS: DILAUDID 0.5 MG IV (20:00)
[2024-12-20] MEDS: COLACE 100 MG PO (20:01)
--- NOTE | 2024-12-20 20:49 | W.PN.URO.CBU ---
Today's Communication / Plan
-
consider hopsice keep sytents
Assessment / Plan
-
creatine bun higher depspite stent suggest med renal diease and some obstruvion from massive tumor t/c hospice obstructing ston Npow c/o dysuria hemturia with stentsbut at present cannot remove stent
Diagnosis
-
Date of Service: December 20, 2024
-
Patient Diagnosis:
Post Op Day:
Patient Diagnosis:
Post Op Day:
Patient Diagnosis:
Post Op Day:
Patient Diagnosis:asha in pt with solitay rt kidney amd metastaic aenal canver withexperimeyt protocol naow creatinine 0.9 to 2.8 and 3.5 iu/s notes medical disease mild hydro pt woth 17 k pts and ua and cx pos
Post Op Day:
ctscan las t p, ree,led obsgtruting stome of solitary kidney
Subjective
-
bladder pain
Objective
-
Vital Signs
Temp Pulse Resp BP Pulse Ox
97.6 F 75 16 134/66 95
12/20/24 15:53 12/20/24 15:53 12/20/24 15:53 12/20/24 15:53 12/20/24 15:53
Intake and Output
12/19/24 12/20/24 12/21/24
06:59 06:59 06:59
Intake Total 1250 / 1250 360 / 360 720 / 720
Output Total 1285 / 1285 1250 / 1250 300 / 300
Balance -35 / -35 -890 / -890 420 / 420
Intake:
Oral fluids 900 / 900 360 / 360 720 / 720
IV fluids (Total) 50 / 50
normosol 50 / 50
Blood Product Amount Infused ( 300 / 300
mL)
Pathogen Redu Plt Leukored 300 / 300
Unit [id number]
Output:
Urine, Voided 1285 / 1285 1250 / 1250 300 / 300
Other:
How many times incontinent 2
SATURATED amount urine
Laboratory Results
12/20/24 06:35
12/20/24 06:35
Review of Systems
-
: Dysuria and Bleeding
Physical Exam
-
General - well developed, well nourished, no acute distress
Chest - clear bilaterally
Abdomen - soft, non-tender, positive bowel sounds, no CVAT, no incisional pain or distention
Genitalia - normal
Rectal - normal
Skin - warm & dry with no rash
Neuro - AOx3, no motor deficits
Extremities - no clubbing, no cyanosis, no edema
Incision - clean, dry
Dressing - clean, dry, intact
Care Review
Data Reviewed
Discussed with: Nursing
[2024-12-20 20:55] LABS: Beta-2-Glycoprotein I Ab. IgG <10 SGU (<=20); Beta-2-Glycoprotein I Ab. IgM 50 SMU (<=20)
[2024-12-20] MEDS: ROXICODONE 5 MG PO (22:46)
[2024-12-20 23:03] VITALS: BP 124/65
[2024-12-21 01:43] LABS: Beta-2-Glycoprotein I Ab. IgA <10 SAU (<=20)
--- NOTE | 2024-12-21 02:00 | PTCARENOTE ---
Patient c/o pain, mostly in abdomen. Patient states the Dilaudid is not 'lasting as long'. Patient not due for Dilaudid for another two hours. This RN notified MADHU Benz and an extra dose of Dilaudid given as ordered. Urine tea colored r/t
renal failure. Patient becoming more forgetful, needing to be reoriented frequently to POC. Patient did express feeling like he 'may be ready for hospice'. Patient reports he would be willing to speak with health care liaison in the morning. Will
continue to monitor.
[2024-12-21] MEDS: DILAUDID 0.5 MG IV ×5 (02:06→23:23)
[2024-12-21] MEDS: ROCEPHIN 1000 MG IV (04:05)
[2024-12-21] MEDS: STERILE WATER FOR INJECTION 10 ML IV (04:05)
[2024-12-21] MEDS: SYNTHROID 88 MCG PO (04:06)
[2024-12-21 06:31] VITALS: BMI 26.4
[2024-12-21 07:00] VITALS: BP 127/68
[2024-12-21] MEDS: NON-FORMULARY ITEM 1 UNIT PO (09:00)
[2024-12-21] MEDS: COLACE 100 MG PO (09:00)
--- NOTE | 2024-12-21 09:03 | W.PN.HOSP.TC ---
Addendum entered and electronically signed by Abhishek Spring DO 12/23/24 17:43:
CDI: Metabolic encephalopathy due to uremia
Original Note:
Today's Communication/Plan
-
Hospice evaluation
Assessment / Plan
Assessment / Plan
#Urinary tract infection
#Left nephrolithiasis
#Solitary kidney, s/p left nephrectomy
- Presented with markedly positive urinalysis, leukocytosis, low-grade fever
- Urine culture obtained in the ED and started on IV ceftriaxone empirically
- Imaging with obstructing left ureterolithiasis; s/p stent with urology on 12/18
- Urine culture with E. coli resistant to ampicillin, ampicillin/sulbactam, indeterminant to cefazolin
- Continue IV CTX, trend CBC and temperature curve for now
- Plan for Augmentin 875-125 mg to complete 14-day course of antibiotics
#Obstructive oliguric JAVED
#NAGMA
#Hyperkalemia
#S/p left nephrectomy
#Uremic encephalopathy
- Presented with creatinine 2.8 that is up trended to 3.9; likely related to obstructive nephrolithiasis possibly degree of ATN
- Was started on IV fluids upon arrival, creatinine continues to worsen, without oliguria
- Nephrology and urology following, had ureteral stent placed with urology on 12/18/2024
- Creatinine slightly up trended from yesterday, remains with good UOP 600 mL overnight
- Continue with light IV fluids (now bicarb drip), trend BMP and UOP closely
- Avoid nephrotoxic agents, temporize K >6 or ECG changes
#Thrombocytopenia
#Coagulopathy
- Suspect due to sepsis v DIC; ISTH score 7; fibrinogen WNL, has not had any bleeding or thrombosis
- Platelet count 46 on arrival, has dropped as low as 14 here; s/p 2 units platelets perioperatively
- Evaluated by oncology who sent off antiphospholipid antibodies, direct platelet antibodies
- Peripheral smear with 1+ schistocytes, low suspicion for TTP/HUS or other MAHA process
- Will continue to trend CBC, monitor for bleeding, follow-up APLS Abs and platelet Abs
- Will consider another unit of platelets today due to hematuria following stent
- Transfusion goals: Platelet count <10K, <50 K with active bleeding
#Euvolemic hyponatremia
- Possibly polydipsia
- Urine osmolality 272 with low urine sodium, unlikely inappropriate ADH
- Serum cortisol levels were elevated, no signs of adrenal failure
- Serum sodium not improving with fluids, stable at 126-128 range
- Resolved with fluid restricted diet
#Hypocalcemia
- Calcium as low as 6.2 on BMP, albumin low though likely deficient
- Recent studies recommend against corrected calcium, will check ionized calcium
- Replete with IV calcium gluconate as needed, monitor for symptoms
- Trend BMP
#Chronic LE edema
- BNP is very high however he does not complain of other symptoms of heart failure
- Abdomen ultrasound and Dopplers were ordered on arrival to rule out IVC thrombus/obstruction
- Urine protein to creatinine ratio 4.9 not consistent with active glomerular process
- Echocardiogram with preserved LVEF, CXR with bilateral effusions
- Add on albumin to a.m. labs to assess degree of third spacing
- Avoid diuretics for now due to significant JAVED
- May need to start diuretics as renal function starts to improve
#Metastatic adrenal cancer
- S/p chemoradiation and immunotherapy, also received ablations in the past
- Was improved with experimental trial at the [facility] though discharged yesterday as he did not improve
- Will consult oncology for further treatment considerations
- Question if he is at the point of needing hospice, C ongoing
#Hypothyroidism
- Unclear etiology, no known autoimmune history, possibly related to cancer
- Home regimen includes levothyroxine 88 mcg daily, appears stable on this regimen
Diet: Regular
Thromboprophylaxis: SCDs
CODE STATUS: DNR/DNI
Disposition: SNF when medically stable
Hospice consult placed today. Patient becoming Oliguric and encephalopathic in the context of uremia, not a candidate for hemodialysis
Anticipated Discharge: > 48 hours
Subjective/Interval History
-
Date of Service: December 21, 2024
Seen and examined at the bedside. No acute events reported overnight. AFVSS today
Renal function worsening with uptrending BUN, diminishing urine output. Appears to be developing encephalopathy
hospice team consult placed
Objective Data
-
Labs:
Laboratory Results
12/21/24
08:53
WBC Pending
Hgb Pending
Hct Pending
Plt Count Pending
Sodium Pending
Potassium Pending
Chloride Pending
Carbon Dioxide Pending
BUN Pending
Creatinine Pending
Glucose Pending
Calcium Pending
Vital Signs:
Vital Signs
Temp Pulse Resp BP Pulse Ox
97.5 F 72 18 127/68 95
12/21/24 07:00 12/21/24 07:00 12/21/24 07:00 12/21/24 07:00 12/21/24 07:00
I&O
12/20/24 12/21/24 12/22/24
06:59 06:59 06:59
Intake Total 360 / 360 720 / 720
Output Total 1250 / 1250 300 / 300
Balance -890 / -890 420 / 420
Review of Systems
-
History Source: Patient
All other systems: Reviewed and negative
Physical Exam
-
General: Well Developed, No Apparent Distress and Comfortable
HEENT: Normocephalic, Atraumatic, Moist Mucous Membranes and Anicteric
Respiratory: Clear to Auscultation and Non Labored Respirations
Cardiac: Regular Rhythm and S1/S2; Negative Murmur, Rub or Gallop
GI: Soft, Nontender, Nondistended and Normal Bowel Sounds
Musculoskeletal: No Clubbing, No Cyanosis and Other (2+ edema)
Skin: Warm, Dry and Rash (Erythematous, red rash of the left medial antecubital fossa)
Neuro: Awake, Alert, Oriented, Nonfocal/Grossly Intact and Central Nerve's Intact; Negative AO x 3
Psych: Calm
Data Reviewed
-
Labs: Labs Reviewed by me and Discussed with Patient
--- NOTE | 2024-12-21 10:00 | PTCARENOTE ---
Pt has swelling in L upper arm above IV site. IV removed. made aware.
[2024-12-21 10:12] LABS: Hematocrit 33.1 % (39.0-52.0); Hemoglobin 11.6 g/dL (13.0-18.0); Mean Corp Hgb Conc. 35.0 g/dL (33.0-37.0); Mean Corpuscular Volume 87.1 fL (80.0-94.0); Red Cell Dist. Width 17.5 % (11.5-14.5)
[2024-12-21] MEDS: ROXICODONE 5 MG PO (10:22)
[2024-12-21 10:40] LABS: Platelet Count 16 10^3/uL (130-400)
[2024-12-21 10:44] LABS: Blood Urea Nitrogen 156 mg/dl (9-20); Calcium 5.8 mg/dl (8.4-10.2); Carbon Dioxide 23 mmol/L (22-30); Chloride 93 mmol/L (98-107); Estimated Creatinine Clearance 14 ml/min; Glucose 61 mg/dl (70-99); Potassium 5.3 mmol/L (3.5-5.1); Sodium 129 mmol/L (135-145); eGFR 13.55
--- NOTE | 2024-12-21 11:09 | W.PN.URO.CBU ---
Today's Communication / Plan
-
NO CHANGES
Assessment / Plan
-
creatine bun higher depspite stent suggest med renal diease and some obstruvion from massive tumor SPOKE WITH PT ABOUT STENT PAIN PREFER NOT TO REMOVE STENT DUE TO PSSIBLE ESRD WITOBSTRUCTIO OFFERRED FOEY TO ALLEVIATE STENT P[AIN BUT MAY
HAVE GAY PAIN PT PRERS NO INDWELLIG GAY AT THIS VIKKI
Diagnosis
-
Date of Service: December 21, 2024
-
Patient Diagnosis:
Post Op Day:
Patient Diagnosis:
Post Op Day:
Patient Diagnosis:
Post Op Day:
Patient Diagnosis:
Post Op Day:
Patient Diagnosis:asha in pt with solitay rt kidney amd metastaic aenal canver withexperimeyt protocol naow creatinine 0.9 to 2.8 and 3.5 iu/s notes medical disease mild hydro pt woth 17 k pts and ua and cx pos
Post Op Day:
ctscan las t p, ree,led obsgtruting stome of solitary kidney
Subjective
-
ABD PAIN ON VOIDNG
Objective
-
Vital Signs
Temp Pulse Resp BP Pulse Ox
97.5 F 72 18 127/68 95
12/21/24 07:00 12/21/24 07:00 12/21/24 07:00 12/21/24 07:00 12/21/24 09:15
Intake and Output
12/20/24 12/21/24 12/22/24
06:59 06:59 06:59
Intake Total 360 / 360 720 / 720
Output Total 1250 / 1250 300 / 300
Balance -890 / -890 420 / 420
Intake:
Oral fluids 360 / 360 720 / 720
Output:
Urine, Voided 1250 / 1250 300 / 300
Other:
How many times incontinent 2
SATURATED amount urine
Laboratory Results
12/21/24 09:30
12/21/24 09:30
Review of Systems
-
: Dysuria, Difficulty Voiding and Bleeding
Physical Exam
-
General - well developed, well nourished, no acute distress
Chest - clear bilaterally
Abdomen - soft, non-tender, positive bowel sounds, no CVAT, no incisional pain or distention
Genitalia - normal
Rectal - normal
Skin - warm & dry with no rash
Neuro - AOx3, no motor deficits
Extremities - no clubbing, no cyanosis, no edema
Incision - clean, dry
Dressing - clean, dry, intact
Counseling
-
NO CHAMGES BUT F SEVER E BLADDER PAIN MAY P[LACE GAY
Care Review
Data Reviewed
Discussed with: Nursing
--- NOTE | 2024-12-21 11:59 | CM ---
Hospice order received for hospice evaluation. Referral sent to Hospice for evaluation.
Per MD, pt is becoming becoming Oliguric and encephalopathic; not a candidate for dialysis.
Plan: Await hospice evaluation for recommendations.
--- NOTE | 2024-12-21 13:08 | W.PN.ONC2 ---
Today's Communication / Plan
-
LUE ultrasound pending
Monitor CBC, clinical status
Consider steroids if no platelet improvement tomorrow
Case management consulted to initiate hospice discussion
Impression
Impression
#Thrombocytopenia
#Metastatic adrenal cancer
Possible reactive thrombocytopenia in setting of urosepsis and metastatic cancer
Possible marrow suppression/megakaryocyte toxicity 2/2 recent [facility] clinical trial
High-grade DIC unlikely given normal/elevated fibrinogen, though low-grade DIC in setting of metastatic cancer still possible
TTP/HUS unlikely given normal T. bili, minimal schistocytes, no physical exam findings of hemolytic anemia
ITP unlikely, though still possible, given negative platelet antibody
Labs
- Platelets 16 today s/p 2 units platelets (46 > 17 > 23 > 17 > 14 > 16)
- Platelet antibody panel: Negative
- APLS panel: Beta-2 glycoprotein IgM Ab, anticardiolipin IgM Ab elevated
- APLS results are noted though nonspecific; APLS has association with hypercoagulability and is sometimes associated with thrombocytopenia
- Blood smear: 1+ schistocytes; luis angel cells; large platelets
- Fibrinogen 403, INR 1.49, PTT 31.8, T. bili 1.0, D-dimer 2.92
Plan
Plan
#Thrombocytopenia�reactive 2/2 sepsis/metastatic cancer vs. DIC vs. ITP vs. TTP/HUS
#Metastatic adrenal cancer
Continue to treat urosepsis to resolve thrombocytopenia 2/2 low-grade DIC vs. reactive in setting of infection/malignancy vs. ITP vs. marrow suppression/megakaryocyte toxicity from recent [facility] clinical trial
Consider trial of steroids if no improvement in platelet count tomorrow
Transfuse plt <10
LUE ultrasound for swelling pending
Case management consulted to start hospice discussion given patient's pain, large abdominal mass, declining functional status, and lack of further treatment options for his metastatic cancer
Subjective/Objective
Chief Complaint
Thrombocytopenia; metastatic adrenal cancer
Subjective
Patient seen at the bedside on hospital day #6. Patient reports right-sided abdominal pain, though he is due for his pain medication. Heme-onc team discussed with patient the challenges posed by his cancer, including his pain, large abdominal
mass, declining functional status, and lack of further treatment options with his oncology team at [facility] (as reported by patient himself). Given the situation, the heme-onc team and patient discussed goals of care, including a likely palliative
approach going forward. CM consult will be placed for patient to start discussion of hospice care.
Vital Signs:
Vital Signs
Temp Pulse Resp BP Pulse Ox
97.5 F 72 18 127/68 95
12/21/24 07:00 12/21/24 07:00 12/21/24 07:00 12/21/24 07:00 12/21/24 09:15
Lab Results:
Laboratory Data
WBC 11.2 10^3/uL (4.8-10.8) H 12/21/24 09:30
Hgb 11.6 g/dL (13.0-18.0) L 12/21/24 09:30
Plt Count 16 10^3/uL (130-400) L* 12/21/24 09:30
PT 18.3 Sec (11.4-14.6) H 12/20/24 06:35
INR 1.49 12/20/24 06:35
APTT 31.8 Sec (23.4-35.0) 12/20/24 06:35
eGFR 13.55 12/21/24 09:30
Physical Exam
HEENT: No Jaundice
Cardiology: S1 and S2
Pulmonary: Clear
GI: Distended (Large, firm, mildly TTP, right sided abdominal mass)
Extremities: Pulses Present and Phlebitic Signs (Left upper extremity swelling)
Neuro: Non Focal
Review of Systems
Review of Systems
Constitutional: Denies Fever or Fatigue
Respiratory: Denies Dyspnea
Cardiovascular: Denies Chest Pain
Gastrointestinal: Reports Other (No abdominal pain at rest)
Neurological: Denies Headache
Hem/Lymphatic: Reports Other (Endorses LUE swelling; denies bleeding); Denies Easy Bruising
Orders
Orders
Orders From Last 24 Hours
12/21/24 09:30
BMP [Basic Metabolic Panel] Routine
CBC/No Diff [Complete Blood Count/No Diff] Routine
12/21/24 13:08
Case Management Consult ONCE
--- NOTE | 2024-12-21 14:10 | PTCARENOTE ---
Pt having decreased urine output, complaining of abdominal pain and abdomen is distended and firm. Bladder scan >1000cc. Pt straight cathed for 1150cc of tea colored urine with few blood clots. Nephro saw pt @ bedside. Pt states abd pain has
decreased and he feels more comfortable at this time. made aware. Will continue to monitor.
--- NOTE | 2024-12-21 14:29 | W.PN.NEPH.PH ---
Today's Communication / Plan
-
follow labs
change IVF to NS
IV vanessa rider
Assessment/Plan
-
Assessment
JAVED
Hyponatremia
Hyperkalemia
Metabolic acidosis
Hypotension
Edema
Nephrotic range proteinuria
Metastatic adrenal carcinoma
Solitary right kidney, left nephrectomy
mild right hydronephrosis
Plan
JAVED worsening cr up at 4.3, azotemia persists 156
he noted U retention , s/p SC today 1.1lit
met acidosis resolved, change iVF to NS
mild hyperkalemia -monitor
hypocalcemia-IV vanessa rider
hyponatremia -no change
Prognosis remains poor
Patient is not a dialysis candidate-Pt d/w nephro previously
Continue conservative, hospice consulted
-
-
Date of Service: December 21, 2024
CC / HPI / ROS
-
Chief Complaint:
JAVED
History of Present Illness:
JAVED/Cr worse to 4.4
BUN up to 156
K high 5.3
Na low 129
BP stable
plts low at 16
s/p OR for ureteral stent right 12/18
Review of Systems:
no CP/SOB
SC 1.1lit today for retention
Labs
-
Labs:
WBC 11.2 10^3/uL (4.8-10.8) H 12/21/24 09:30
RBC 3.80 10^6/uL (4.70-6.10) L 12/21/24 09:30
Hgb 11.6 g/dL (13.0-18.0) L 12/21/24 09:30
Hct 33.1 % (39.0-52.0) L 12/21/24 09:30
Plt Count 16 10^3/uL (130-400) L* 12/21/24 09:30
Sodium 129 mmol/L (135-145) L 12/21/24 09:30
Potassium 5.3 mmol/L (3.5-5.1) H 12/21/24 09:30
Chloride 93 mmol/L (98-107) L 12/21/24 09:30
Carbon Dioxide 23 mmol/L (22-30) 12/21/24 09:30
BUN 156 mg/dl (9-20) H* 12/21/24 09:30
Creatinine 4.3 mg/dL (0.7-1.3) H* 12/21/24 09:30
eGFR 13.55 12/21/24 09:30
Glucose 61 mg/dl (70-99) L 12/21/24 09:30
Calcium 5.8 mg/dl (8.4-10.2) L* 12/21/24 09:30
Hfn-K-Vbalqalaczc Pept > 96898 pg/ml 12/16/24 09:35
Albumin 2.4 g/dl (3.5-5.0) L 12/19/24 06:12
Physical Exam
-
Vital Signs:
Vital Signs
Temp Pulse Resp BP Pulse Ox
97.5 F 72 18 127/68 95
12/21/24 07:00 12/21/24 07:00 12/21/24 07:00 12/21/24 07:00 12/21/24 09:15
Cardiovascular:: Regular rate and rhythm
Respiratory:: Bilateral: CTA (decreased anteriorly)
Lung Excursion:: Normal
Abdomen:: Distended and Soft (palpable mass right abd)
Bowel Sounds:: Normal
Extremity Edema:: +2: Bilateral:
Grimes Catheter: No
--- NOTE | 2024-12-21 14:32 | HOSPNOTE ---
Addendum entered by Kath Saenz RN 12/21/24 14:50:
Patient has now agreed to be inpatient hospice tomorrow 12/22 he needs to make some arrangements today. Patient will sign his own consent forms tomorrow morning. I rajiv call admissions and get patient a bed on [facility]. Attending aware of plan.
Original Note:
The plan if patient is in agreement to admit inpatient hospice tomorrow 12/22. I will continue trying to make patient understand. Attending aware of plan. More information to follow.
[2024-12-21 15:00] VITALS: BP 127/65
[2024-12-21] MEDS: CALCIUM GLUCONATE 130 MG IV (15:31)
[2024-12-21] MEDS: NSS 1000 IV (15:32)
[2024-12-21] MEDS: SODIUM BICARBONATE IV (15:45)
[2024-12-21] MEDS: COLACE PO (21:14)
[2024-12-21 23:00] VITALS: BP 124/65
[2024-12-22] MEDS: ROCEPHIN 1000 MG IV (05:31)
[2024-12-22] MEDS: STERILE WATER FOR INJECTION 10 ML IV (05:31)
[2024-12-22] MEDS: SYNTHROID 88 MCG PO (05:32)
[2024-12-22] MEDS: DILAUDID 0.5 MG IV (05:33)
[2024-12-22 05:48] VITALS: BMI 28.1
[2024-12-22 07:54] VITALS: BP 139/66
[2024-12-22] MEDS: COLACE 100 MG PO (08:43)
[2024-12-22] MEDS: NON-FORMULARY ITEM 1 UNIT PO (08:43)
[2024-12-22 08:52] LABS: Hematocrit 28.9 % (39.0-52.0); Hemoglobin 10.4 g/dL (13.0-18.0); Mean Corp Hgb Conc. 36.0 g/dL (33.0-37.0); Mean Corpuscular Volume 85.3 fL (80.0-94.0); Platelet Count 24 10^3/uL (130-400); Red Cell Dist. Width 17.2 % (11.5-14.5)
[2024-12-22 08:58] LABS: Calcium 5.9 mg/dl (8.4-10.2); Carbon Dioxide 20 mmol/L (22-30); Chloride 97 mmol/L (98-107); Glucose 74 mg/dl (70-99); Potassium 5.2 mmol/L (3.5-5.1); Sodium 127 mmol/L (135-145)
[2024-12-22 09:00] LABS: Estimated Creatinine Clearance 16 ml/min; eGFR 16.23
[2024-12-22 09:08] LABS: Blood Urea Nitrogen 168 mg/dl (9-20)
--- NOTE | 2024-12-22 10:10 | W.PN.ONC2 ---
Today's Communication / Plan
-
Platelets slightly improved today
Hospice discussion ongoing
Monitor CBC, clinical status
Impression
Impression
#Thrombocytopenia
Possible reactive thrombocytopenia in setting of urosepsis and metastatic cancer
Possible marrow suppression/megakaryocyte toxicity 2/2 recent [facility] clinical trial
High-grade DIC unlikely given normal/elevated fibrinogen, though low-grade DIC in setting of metastatic cancer still possible
TTP/HUS unlikely given normal T. bili, minimal schistocytes, no physical exam findings of hemolytic anemia
ITP unlikely, though still possible, given negative platelet antibody
Labs
- Platelets 24 today s/p 2 units platelets, improved from 16 yesterday
- Platelet antibody panel: Negative
- APLS panel: Beta-2 glycoprotein IgM Ab, anticardiolipin IgM Ab elevated
- APLS results are noted though nonspecific; APLS has association with hypercoagulability and is sometimes associated with thrombocytopenia
- Blood smear: 1+ schistocytes; luis angel cells; large platelets
- Fibrinogen 403, INR 1.49, PTT 31.8, T. bili 1.0, D-dimer 2.92
- No current signs of bleeding
#Metastatic adrenal cancer
Patient follows with heme-onc team at [facility]
He has undergone prior chemoradiation, immunotherapy, and recent NIH trial that showed no clinical benefit
Heme-onc team discussed with patient the lack of further treatment options for his cancer
Plan
Plan
#Thrombocytopenia
#Metastatic adrenal cancer
Continue to treat underlying infection to resolve thrombocytopenia 2/2 low-grade DIC vs. reactive in setting of infection/malignancy vs. ITP vs. marrow suppression/megakaryocyte toxicity from recent [facility] clinical trial
Monitor CBC, clinical status
Transfuse plt <10, or <50 if bleeding present
Hospice discussion ongoing given patient's pain, large abdominal mass, declining functional status, and lack of further treatment options for his metastatic cancer
Subjective/Objective
Chief Complaint
Thrombocytopenia; metastatic adrenal cancer
Subjective
Patient seen at bedside on hospital day #7. No pain currently. No current complaints. When asked about meeting with CM about hospice, patient says he still needs to think about it. Patient states his urine over the last day was yellow with no
signs of blood.
Vital Signs:
Vital Signs
Temp Pulse Resp BP Pulse Ox
97.5 F 65 16 139/66 95
12/22/24 07:54 12/22/24 07:54 12/22/24 07:54 12/22/24 07:54 12/22/24 07:54
Lab Results:
Laboratory Data
WBC 10.5 10^3/uL (4.8-10.8) 12/22/24 08:12
Hgb 10.4 g/dL (13.0-18.0) L 12/22/24 08:12
Plt Count 24 10^3/uL (130-400) L* D 12/22/24 08:12
PT 18.3 Sec (11.4-14.6) H 12/20/24 06:35
INR 1.49 12/20/24 06:35
APTT 31.8 Sec (23.4-35.0) 12/20/24 06:35
eGFR 16.23 12/22/24 08:12
Physical Exam
HEENT: No Jaundice
Cardiology: S1 and S2
Pulmonary: Clear
GI: Distended (Large, firm, right-sided abdominal) and Spleenomegaly (Nonpalpable)
Extremities: Pulses Present and Phlebitic Signs (Swollen, not TTP left upper extremity)
Neuro: Non Focal
Review of Systems
Review of Systems
Genitourinary: Denies Hematuria
Hem/Lymphatic: Reports Other (No bleeding); Denies Easy Bruising
Orders
Orders
Orders From Last 24 Hours
12/21/24 09:30
BMP [Basic Metabolic Panel] Routine
CBC/No Diff [Complete Blood Count/No Diff] Routine
12/21/24 13:08
Case Management Consult ONCE
12/22/24 08:12
BMP [Basic Metabolic Panel] Routine
CBC/No Diff [Complete Blood Count/No Diff] Routine
--- NOTE | 2024-12-22 10:33 | W.PN.HOSP.TC ---
Today's Communication/Plan
-
Discharge to inpatient hospice
Assessment / Plan
Assessment / Plan
#Inpatient hospice transition
- Patient signed onto inpatient hospice today
- Very poor short-term prognosis with metastatic adrenal cancer, acute renal failure with signs of encephalopathy
- Will transfer to private room today, start comfort medications as needed
- Continue with DNR status
#Urinary tract infection
#Left nephrolithiasis
#Solitary kidney, s/p left nephrectomy
- Presented with markedly positive urinalysis, leukocytosis, low-grade fever
- Urine culture obtained in the ED and started on IV ceftriaxone empirically
- Imaging with obstructing left ureterolithiasis; s/p stent with urology on 12/18
- Urine culture with E. coli resistant to ampicillin, ampicillin/sulbactam, indeterminant to cefazolin
- Continue IV CTX, trend CBC and temperature curve for now
- Plan for Augmentin 875-125 mg to complete 14-day course of antibiotics
#Obstructive oliguric JAVED
#NAGMA
#Hyperkalemia
#S/p left nephrectomy
#Uremic encephalopathy
- Presented with creatinine 2.8 that is up trended to 3.9; likely related to obstructive nephrolithiasis possibly degree of ATN
- Was started on IV fluids upon arrival, creatinine continues to worsen, without oliguria
- Nephrology and urology following, had ureteral stent placed with urology on 12/18/2024
- Creatinine slightly up trended from yesterday, remains with good UOP 600 mL overnight
- Continue with light IV fluids (now bicarb drip), trend BMP and UOP closely
- Avoid nephrotoxic agents, temporize K >6 or ECG changes
#Thrombocytopenia
#Coagulopathy
- Suspect due to sepsis v DIC; ISTH score 7; fibrinogen WNL, has not had any bleeding or thrombosis
- Platelet count 46 on arrival, has dropped as low as 14 here; s/p 2 units platelets perioperatively
- Evaluated by oncology who sent off antiphospholipid antibodies, direct platelet antibodies
- Peripheral smear with 1+ schistocytes, low suspicion for TTP/HUS or other MAHA process
- Will continue to trend CBC, monitor for bleeding, follow-up APLS Abs and platelet Abs
- Will consider another unit of platelets today due to hematuria following stent
- Transfusion goals: Platelet count <10K, <50 K with active bleeding
#Euvolemic hyponatremia
- Possibly polydipsia
- Urine osmolality 272 with low urine sodium, unlikely inappropriate ADH
- Serum cortisol levels were elevated, no signs of adrenal failure
- Serum sodium not improving with fluids, stable at 126-128 range
- Resolved with fluid restricted diet
#Hypocalcemia
- Calcium as low as 6.2 on BMP, albumin low though likely deficient
- Recent studies recommend against corrected calcium, will check ionized calcium
- Replete with IV calcium gluconate as needed, monitor for symptoms
- Trend BMP
#Chronic LE edema
- BNP is very high however he does not complain of other symptoms of heart failure
- Abdomen ultrasound and Dopplers were ordered on arrival to rule out IVC thrombus/obstruction
- Urine protein to creatinine ratio 4.9 not consistent with active glomerular process
- Echocardiogram with preserved LVEF, CXR with bilateral effusions
- Add on albumin to a.m. labs to assess degree of third spacing
- Avoid diuretics for now due to significant JAVED
- May need to start diuretics as renal function starts to improve
#Metastatic adrenal cancer
- S/p chemoradiation and immunotherapy, also received ablations in the past
- Was improved with experimental trial at the [facility] though discharged yesterday as he did not improve
- Will consult oncology for further treatment considerations
- Question if he is at the point of needing hospice, [facility] ongoing
#Hypothyroidism
- Unclear etiology, no known autoimmune history, possibly related to cancer
- Home regimen includes levothyroxine 88 mcg daily, appears stable on this regimen
Diet: Regular
Thromboprophylaxis: SCDs
CODE STATUS: DNR/DNI
Disposition: SNF when medically stable
Hospice consult placed today. Patient becoming Oliguric and encephalopathic in the context of uremia, not a candidate for hemodialysis
Anticipated Discharge: Today
Subjective/Interval History
-
Date of Service: December 22, 2024
Seen and examined at the bedside. No acute events reported overnight. AFVSS this morning
Seen with hospice team in the room. Patient now formally signed onto inpatient hospice
He denies any complaints of chest pain or dyspnea at this time
Objective Data
-
Labs:
Laboratory Results
12/22/24
08:12
WBC 10.5
Hgb 10.4 L
Hct 28.9 L
Plt Count 24 L* D
Sodium 127 L
Potassium 5.2 H
Chloride 97 L
Carbon Dioxide 20 L
BUN 168 H*
Creatinine 3.7 H
Glucose 74
Calcium 5.9 L*
Vital Signs:
Vital Signs
Temp Pulse Resp BP Pulse Ox
97.5 F 65 16 139/66 95
12/22/24 07:54 12/22/24 07:54 12/22/24 07:54 12/22/24 07:54 12/22/24 07:54
I&O
12/21/24 12/22/24 12/23/24
06:59 06:59 06:59
Intake Total 720 / 720 1440 / 1440
Output Total 300 / 300 2775 / 2775
Balance 420 / 420 -1335 / -1335
Review of Systems
-
History Source: Patient
All other systems: Reviewed and negative
Physical Exam
-
General: Well Developed, No Apparent Distress, Appears Chronically Ill and Cachectic
HEENT: Normocephalic, Atraumatic and Moist Mucous Membranes
Respiratory: Clear to Auscultation and Non Labored Respirations
Cardiac: Regular Rhythm and S1/S2; Negative Murmur
GI: Soft, Nontender, Normal Bowel Sounds and Distended
Musculoskeletal: No Clubbing, No Cyanosis and Other (2+ edema)
Skin: Warm and Dry; Negative Rash
Neuro: AO x 3, Nonfocal/Grossly Intact and Central Nerve's Intact
Psych: Calm
Data Reviewed
-
Labs: Labs Reviewed by me, Discussed with Nurse and Discussed with Patient
--- NOTE | 2024-12-22 10:48 | HOSPNOTE ---
Spoke at length with patient and he is in agreement with hospice and the philosophy. Consents are signed and patient will be moved to [facility] when a bed is available. CM and Attending aware of plan.
--- NOTE | 2024-12-22 11:11 | PN.CDI ---
CDI
- -
CDI:
Physician Documentation Request
Admit Date: 12/16/24 07:57
Dear Doctor Saw,
Please review the following and provide your response in the progress notes.
Clinical Indicators:
Pt admitted with Sepsis / JAVED/UTI pt on IV ceftriaxone
Progress note 12/22, ' #Uremic encephalopathy Presented with creatinine 2.8 that is up trended to 3.9; likely related to obstructive nephrolithiasis possibly degree of ATN Was started on IV fluids upon arrival, creatinine continues to worsen,
without oliguria...'
Please specify the known or suspected type of the documented encephalopathy.
Metabolic
Septic
Toxic metabolic
Other ( please specify)
Use of terms such as suspected, likely, concern for, or probable (associated with a specific diagnosis that is being evaluated, monitored, or treated as if it exists) are acceptable and can be coded in the inpatient setting, when documented at the
time of discharge.
Thank you,
Patricia Cleary RN
CDI Specialist
[place] [facility]
Please use your independent medical judgment in providing your response.
[2024-12-22 11:50] VITALS: BP 115/62
--- NOTE | 2024-12-22 12:00 | CM ---
Pt has consented to hospice care. Hospice following with plan to transfer Jeff to [address] [place] [address] when a bed is available.
Plan: Transfer to [address] [place] [address] with hospice care.
--- NOTE | 2024-12-22 12:31 | W.PN.NEPH.PH ---
Today's Communication / Plan
-
hospice
Assessment/Plan
-
Assessment
JAVED
Hyponatremia
Hyperkalemia
Metabolic acidosis
Hypotension
Edema
Nephrotic range proteinuria
Metastatic adrenal carcinoma
Solitary right kidney, left nephrectomy
mild right hydronephrosis
Plan
JAVED cr down to 3.7 post beavers however azotemia worsening 168
worsening hypoantremia and met acidosis
mild hyperkalemia -monitor
hypocalcemia persists
Prognosis remains poor
Patient is not a dialysis candidate
for inpt hospice today
-
-
Date of Service: December 22, 2024
CC / HPI / ROS
-
Chief Complaint:
JAVED
History of Present Illness:
JAVED/Cr better at 3.7
BUN up to 168, vanessa 5.9
K high 5.2
Na low 127
BP stable
plts low at 24
s/p OR for ureteral stent right 12/18
Review of Systems:
no CP/SOB, but can not take deep breath
non oliguric with beavers
Labs
-
Labs:
WBC 10.5 10^3/uL (4.8-10.8) 12/22/24 08:12
RBC 3.39 10^6/uL (4.70-6.10) L 12/22/24 08:12
Hgb 10.4 g/dL (13.0-18.0) L 12/22/24 08:12
Hct 28.9 % (39.0-52.0) L 12/22/24 08:12
Plt Count 24 10^3/uL (130-400) L* D 12/22/24 08:12
Sodium 127 mmol/L (135-145) L 12/22/24 08:12
Potassium 5.2 mmol/L (3.5-5.1) H 12/22/24 08:12
Chloride 97 mmol/L (98-107) L 12/22/24 08:12
Carbon Dioxide 20 mmol/L (22-30) L 12/22/24 08:12
BUN 168 mg/dl (9-20) H* 12/22/24 08:12
Creatinine 3.7 mg/dL (0.7-1.3) H 12/22/24 08:12
eGFR 16.23 12/22/24 08:12
Glucose 74 mg/dl (70-99) 12/22/24 08:12
Calcium 5.9 mg/dl (8.4-10.2) L* 12/22/24 08:12
Olo-X-Lnwnuwjbhsv Pept > 69284 pg/ml 12/16/24 09:35
Albumin 2.4 g/dl (3.5-5.0) L 12/19/24 06:12
Physical Exam
-
Vital Signs:
Vital Signs
Temp Pulse Resp BP Pulse Ox
97.5 F 69 16 115/62 93
12/22/24 07:54 12/22/24 11:50 12/22/24 11:50 12/22/24 11:50 12/22/24 11:50
Cardiovascular:: Regular rate and rhythm
Respiratory:: Bilateral: CTA (decreased anteriorly)
Lung Excursion:: Normal
Abdomen:: Distended and Soft (palpable mass right abd)
Bowel Sounds:: Normal
Extremity Edema:: +2: Bilateral:
Beavers Catheter: Yes
[2024-12-22 12:43] LABS: Anticoagulant Med Neutralizati Not Performed (Not Performed); Neutralized dRVTT Screen Ratio Not Performed (<=1.20); Prothrombin Time 20.0 s (12.0-15.5); dRVTT 1.1 Mix Ratio 1.16 (<=1.20); dRVTT Confirmation Ratio 1.18 (<=1.20); dRVTT Screen Ratio 1.49 (<=1.20)
[2024-12-23 01:16] LABS: Phosphatidylserine Ab, IgA 4 APS (0-19); Phosphatidylserine Ab, IgG 0 GPS (0-15); Phosphatidylserine Ab, IgM 47 MPS (0-21)
--- NOTE | 2024-12-23 12:37 | W.PN.URO.CBU ---
Today's Communication / Plan
-
HOSPICE MAY HAVE BEAVERS UPON REQUEST
Assessment / Plan
-
creatine bun higher depspite stent suggest med renal diease and some obstruvion from massive tumor FOR HOSPICE
Diagnosis
-
Date of Service: December 23, 2024
-
Patient Diagnosis:
Post Op Day:
Patient Diagnosis:
Post Op Day:
Patient Diagnosis:
Post Op Day:
Patient Diagnosis:
Post Op Day:
Patient Diagnosis:
Post Op Day:
Patient Diagnosis:asha in pt with solitay rt kidney amd metastaic aenal canver withexperimeyt protocol naow creatinine 0.9 to 2.8 and 3.5 iu/s notes medical disease mild hydro pt woth 17 k pts and ua and cx pos
Post Op Day:
ctscan las t p, ree,led obsgtruting stome of solitary kidney
Subjective
-
STILL MILD HEANTURIA
Objective
-
Vital Signs
Temp Pulse Resp BP Pulse Ox
97.5 F 69 16 115/62 93
12/22/24 07:54 12/22/24 11:50 12/22/24 11:50 12/22/24 11:50 12/22/24 11:50
Intake and Output
12/22/24 12/23/24 12/24/24
06:59 06:59 06:59
Intake Total 1440 / 1440
Output Total 2775 / 2775
Balance -1335 / -1335
Intake:
Oral fluids 1440 / 1440
Output:
Urine, Beavers 450 / 450
Urine, Voided 1175 / 1175
Straight cath output 1150 / 1150
Laboratory Results
12/22/24 08:12
12/22/24 08:12
Review of Systems
-
: Difficulty Voiding and Bleeding
Physical Exam
-
General - well developed, well nourished, no acute distress
Chest - clear bilaterally
Abdomen - soft, non-tender, positive bowel sounds, no CVAT, no incisional pain or distention
Genitalia - normal
Rectal - normal
Skin - warm & dry with no rash
Neuro - AOx3, no motor deficits
Extremities - no clubbing, no cyanosis, no edema
Incision - clean, dry
Dressing - clean, dry, intact
Counseling
-
My have beavers upon request
== END 2024-12-22 12:09 | disposition hospice, inpatient (51) | DRG 853 ==
LOC: 3 WEST ACU 07:57
PROVIDERS: Internal Medicine Hematology & Oncology; Physician Assistant; Specialist; ADMITTING PHYSICIAN Internal Medicine; ATTENDING PHYSICIAN Internal Medicine; EMERGENCY PHYSICIAN Student in an Organized Health Care Education/Training Program; FAMILY PHYSICIAN Internal Medicine Geriatric Medicine; OTHER PHYSICIAN Internal Medicine Hematology & Oncology; OTHER PHYSICIAN Specialist
PROC: 0TC68ZZ Extirpation of Matter from Right Ureter, Via Natural or Artificial Opening Endoscopic (ICD-10-PCS; 2024-12-18)
PROC: 0T768DZ Dilation of Right Ureter with Intraluminal Device, Via Natural or Artificial Opening Endoscopic (ICD-10-PCS; 2024-12-18)
DX: A41.9 Sepsis, unspecified organism (principal); D65 Disseminated intravascular coagulation [defibrination syndrome]; G93.41 Metabolic encephalopathy; E43 Unspecified severe protein-calorie malnutrition; C74.00 Malignant neoplasm of cortex of unspecified adrenal gland; N17.9 Acute kidney failure, unspecified; E87.20 Acidosis, unspecified; E22.2 Syndrome of inappropriate secretion of antidiuretic hormone; N13.2 Hydronephrosis with renal and ureteral calculous obstruction; N39.0 Urinary tract infection, site not specified; I47.10 Supraventricular tachycardia, unspecified; C79.51 Secondary malignant neoplasm of bone; R64 Cachexia; R62.7 Adult failure to thrive; Z87.891 Personal history of nicotine dependence; R60.0 Localized edema; E83.51 Hypocalcemia; Z66 Do not resuscitate; E87.5 Hyperkalemia; Z90.5 Acquired absence of kidney; E03.9 Hypothyroidism, unspecified; Z68.28 Body mass index [BMI] 28.0-28.9, adult; Q24.8 Other specified congenital malformations of heart; Z51.5 Encounter for palliative care
CPT/HCPCS: 71046; 74176; 74420; 76000; 76700; 80048; 80053; 81003; 81015; 82040; 82330; 82533; 82570; 82962; 83880; 83935; 84156; 84300; 84443; 85025; 85027; 85379; 85384; 85520; 85610; 85613; 85730; 86023; 86146; 86147; 86148; 86850; 86900; 86901; 87077; 87086; 87186; 93005; 93306; 93975; 96374; 96375; 97530; 99284; A4300; C2617; P9073

== ENCOUNTER 2024-12-22 12:11 | Inpatient (IN) | payer OTHER, SELFPAY ==
--- NOTE | 2024-12-22 11:23 | HPS.HSE ---
Family Physician
-
Family Physician: NOT KNOW UNKNOWN - PT DOES
Chief Complaint
-
Inpatient hospice
History of Present Illness
74-year-old male with metastatic adrenal carcinoma s/p militating, s/p chemoradiation, s/p immunotherapy, s/p NIH experimental trial medication from which he was recently discharged that initially presented to the hospital with acute renal failure,
thrombocytopenia, UTI with obstructing nephrolithiasis in his solitary right kidney. Developed worsening renal function despite right ureteral stent placement as well as chronically low platelet count while here. Was assessed by nephrology,
urology, oncology. Due to his ECOG status not candidate for further chemotherapy agents. Met with myself and hospice in the room today and formally agreed to sign on.
Medical History
Past Medical History
Past Medical History: Reports Other
Additional Past Medical History:
Metastatic adrenal cancer
Past Surgical History: Reports Other
Social History
Tobacco: Former Smoker
Alcohol: None
Drug: None
Living: Alone
Employment: Employed
Family History
Family History: Not pertinent
Allergies / Home Medications
Allergies reflects when Allergies were last updated in [facility].
Home Medications with original date entered in [facility]
Allergy/Medication List:
Allergies
Allergy/AdvReac Type Severity Reaction Status Date / Time
No Known Allergies Allergy Verified 08/07/20 10:42
Home Medications
levothyroxine 88 mcg tablet 88 mcg PO DAILY 12/16/24
ascorbate calcium-bioflavonoid 500 mg-200 mg tablet (Laurie-C with Bioflavonoids) 1 tab 1XD 12/17/24
cholecalciferol (vitamin D3) 25 mcg (1,000 unit) capsule 25 mcg PO DAILY 12/17/24
magnesium oxide 400 mg PO DAILY 12/17/24
potassium chloride 20 meq PO 1XD 12/17/24
prochlorperazine maleate 10 mg Q6 PRN nausea 10/11/25
Review of Systems
-
History Source: Patient
A 12 point ROS was completed and negative except as noted: Yes
Physical Exam
Physical Exam
General: Well Developed, Appears Chronically Ill and Cachectic
HEENT: NormoCephalic, Anicteric and Moist mucous membranes
Respiratory: Clear and Non Labored Respirations; No Accessory Resp Muscle Use
Cardiac: S1/S2, Regular Rhythm and Peripheral Edema; No Murmur, Rub or Gallop
GI: Soft, Non Tender and Distended
Musculoskeletal: No Clubbing and No Cyanosis
Skin: Warm and Dry; No Rash
Neuro: AO x 3 and Nonfocal/grossly intact
Psych: Calm
Impression/Plan
-
#Metastatic renal cancer
#UTI with obstructive nephrolithiasis and solitary right kidney
#Thrombocytopenia with concern for DIC
#Acute renal failure with uremic encephalopathy
#Hypothyroidism
#LE edema
Plan:
-Admit to inpatient hospice, maintain DNR status, discontinue treatment based medications
-Start comfort plan with end-of-life assessments
-Morphine as needed for pain or air hunger, can progress to drip as needed
-Ativan IV as needed for anxiety
-Zofran as needed for nausea or vomiting
-Transfer to [facility] hospital room
DNR
--- NOTE | 2024-12-22 12:01 | HOSPNOTE ---
visited patient at [facility] in room 336-02. Patient was alert but very tired. He reported no pain at this time. He reported that he grew up Jain but was pulling away from evangelical practices. He is questioning God and is not
ready to discuss spiritual journey. explained that our serces are to support him emotionally and to meet everyone where they are in beliefs. He declined prayer at this time and would be up to a visit at a later time. respected
these wishes and will follow up next week.
--- NOTE | 2024-12-22 13:08 | HOSPNOTE ---
Patient admitted to inpatient level of hospice care for pain management. Plan to move to private room on . Hospice will visit daily.
--- NOTE | 2024-12-22 15:30 | PTCARENOTE ---
Pt transferred down from [facility] with RN at bedside, pt assessed, needs meds, pt requesting no meds at this time, just apple juice. Abdomen full round and hard with constipation, made aware. No new orders at this time. Pt resting comfortably in bed
with call light at side at this time.
[2024-12-22 15:39] VITALS: BP 135/65
[2024-12-22] MEDS: VALIUM INJECTION 5 MG IV (16:20)
[2024-12-22] MEDS: MORPHINE SULFATE 1 MG IV ×2 (21:03→22:14)
[2024-12-23 03:55] VITALS: BP 139/70
[2024-12-23] MEDS: MORPHINE SULFATE 1 MG IV ×2 (05:39→10:54)
[2024-12-23] MEDS: VALIUM INJECTION 5 MG IV (05:47)
[2024-12-23 07:00] VITALS: BP 125/68
--- NOTE | 2024-12-23 09:28 | W.PN.HOSP.TC ---
Addendum entered and electronically signed by Abhishek Spring DO 12/23/24 14:00:
CDI: Metabolic encephalopathy due to uremia
Original Note:
Today's Communication/Plan
-
Continue with comfort measures
Assessment / Plan
Assessment / Plan
#Metastatic renal cancer
#UTI with obstructive nephrolithiasis and solitary right kidney
#Thrombocytopenia with concern for DIC
#Acute renal failure with uremic encephalopathy
#Hypothyroidism
#LE edema
Plan:
-Admit to inpatient hospice, maintain DNR status, discontinue treatment based medications
-Start comfort plan with end-of-life assessments
-Morphine as needed for pain or air hunger, can progress to drip as needed
-Ativan IV as needed for anxiety
-Zofran as needed for nausea or vomiting
-Transfer to [facility], [facility] room
DNR
Discussed with hospice nurse
Anticipated Discharge: 24 - 48 hours
Subjective/Interval History
-
Date of Service: December 23, 2024
Seen and examined at the bedside. Worsening pain and dyspnea, transitioning to morphine
Objective Data
-
Vital Signs:
Vital Signs
Temp Pulse Resp BP Pulse Ox
98.9 F 70 16 139/70 97
12/23/24 03:55 12/23/24 03:55 12/23/24 03:55 12/23/24 03:55 12/23/24 03:55
Review of Systems
-
History Source: Patient
All other systems: Reviewed and negative
Physical Exam
-
General: Well Developed, Appears Chronically Ill and Cachectic
HEENT: Normocephalic, Atraumatic and Moist Mucous Membranes
Respiratory: Non Labored Respirations and Decreased Breath Sounds; Negative Accessory Resp Muscle Use
Cardiac: Regular Rhythm and S1/S2; Negative Murmur, Rub or Gallop
GI: Soft, Nontender, Normal Bowel Sounds and Distended
Musculoskeletal: No Clubbing, No Cyanosis and Other (2+ edema)
Skin: Warm and Dry; Negative Rash
Neuro: AO x 3, Nonfocal/Grossly Intact and Central Nerve's Intact
Psych: Calm
--- NOTE | 2024-12-23 11:47 | HOSPNOTE ---
Patient assessed laying in bed, lethargic and appears confused, reports he 'feels gross', flacc 9 on assessment, dyspnea reported and tachypnea on assessment with coarse lung sounds. Patient is tense, grimacing, and per facility RN Marina is
repeatedly crying out and in significant discomfort. A morphine drip is required. Outreach to Dr. Spring with the prior information, clear understanding verbalized and he reports he will get a drip ordered. Mottling to the bases of the patients feet.
Patient remains GIP for titration of medications and pain and dyspnea management.
[2024-12-23] MEDS: MORPHINE 100 IV (12:37)
[2024-12-23] MEDS: MORPHINE SULFATE 2 MG IV (12:38)
[2024-12-23] MEDS: ZOFRAN 4 MG IV (12:39)
--- NOTE | 2024-12-23 17:43 | W.DCSUMMARY ---
Discharge Summary
Discharge Data
Date of Admission: 12/16/24
Date of Discharge: 12/22/24
-
Pending Results: No
Hospital Course
74-year-old male with metastatic adrenal cancer s/p chemo and XRT, s/p immunotherapy, s/p experimental NIH trial with nonresponse that presented to the hospital with UTI, worsening renal function and downtrending platelets concerning for DIC. Had
ureteral stent placed for a right sided ureteral lithiasis in the context of right solitary kidney. Had clinical worsening with development of oliguria and uremic encephalopathy. Decision was made to transition to inpatient hospice. Treatment
based medications were discontinued and he was transition to comfort based medications with as needed benzodiazepines and morphine for inpatient hospice care.
Discharge Plan
-
Patient Disposition: Hospice - Inpatient DH
Discharge Diagnosis/Procedures: Metastatic adrenal
Thrombocytopenia with concern for DIC
Acute renal failure with oliguria
Uremic encephalopathy
UTI and obstructing nephrolithiasis and solitary kidney
Status post ureteral stent
Condition: Serious
Diet: No restrictions
Activity: As tolerated
Driving Restrictions: No driving
Bathing Restrictions: None
Referrals:
UNKNOWN - PT DOES,NOT KNOW [Family Provider]
Prescriptions:
No Action
levothyroxine 88 mcg tablet
88 mcg PO DAILY
cholecalciferol (vitamin D3) 25 mcg (1,000 unit) Capsule
25 mcg PO DAILY
Laurie-C with Bioflavonoids 500-200 mg Tablet
1 tab 1XD
Rx Instructions:
daily at 10 am
magnesium oxide 400 mg magnesium Tablet
400 mg PO DAILY
Rx Instructions:
at night
potassium chloride
20 meq PO 1XD
prochlorperazine maleate
10 mg Q6 PRN (Reason: nausea)
Discharge Date and Time
Print Language: ROMANIAN
[2024-12-23 19:52] VITALS: BP 113/54
[2024-12-24 07:55] VITALS: BP 106/52
--- NOTE | 2024-12-24 09:17 | W.PN.HOSP.TC ---
Today's Communication/Plan
-
Continue inpatient hospice with comfort measures
May pass in the next 24 to 48 hours
Assessment / Plan
Assessment / Plan
#Metastatic renal cancer
#UTI with obstructive nephrolithiasis and solitary right kidney
#Thrombocytopenia with concern for DIC
#Acute renal failure with uremic encephalopathy
#Hypothyroidism
#LE edema
Plan:
-Admit to inpatient hospice, maintain DNR status, discontinue treatment based medications
-Start comfort plan with end-of-life assessments
-Morphine as needed for pain or air hunger, can progress to drip as needed
-Ativan IV as needed for anxiety
-Zofran as needed for nausea or vomiting
-[facility]
DNR
Discussed with hospice nurse
Anticipated Discharge: 24 - 48 hours
Subjective/Interval History
-
Date of Service: December 24, 2024
Seen and examined at the bedside. Discussed with nursing. Patient remains without significant symptoms.
Objective Data
-
Vital Signs:
Vital Signs
Temp Pulse Resp BP Pulse Ox
97.4 F 65 12 106/52 95
12/24/24 07:55 12/24/24 07:55 12/24/24 07:55 12/24/24 07:55 12/24/24 07:55
I&O
12/23/24 12/24/24 12/25/24
06:59 06:59 06:59
Intake Total 480 / 480
Output Total 1800 / 1800
Balance -1320 / -1320
Review of Systems
-
Unable to obtain full review of systems at this time due to: Acuity
Physical Exam
-
General: Well Developed, Appears Chronically Ill and Cachectic
HEENT: Normocephalic, Atraumatic and Moist Mucous Membranes
Respiratory: Non Labored Respirations and Decreased Breath Sounds
Cardiac: Regular Rhythm and S1/S2
GI: Soft, Nontender and Distended
Musculoskeletal: No Clubbing, No Cyanosis and Other (3+ edema)
Skin: Warm and Dry; Negative Rash
Neuro: Awake, Alert, Oriented and Nonfocal/Grossly Intact
Psych: Calm
--- NOTE | 2024-12-24 11:12 | HOSPNOTE ---
Assessed patient in the bed awake and oriented x 1-2 calm, speech slow. Denies having pain, Flacc 0. Breathing nonlabored and shallow, lungs diminished. Currently on morphine step 1, last prn dose of morphine was yesterday. Patient denies needing
anything now. Patient requested assistance in spoon feeding him his breakfast. Assisted patient, ate full thing of fruit cup, 3 bites of oatmeal and sips of milk. Repositioned back so he can take a nap. Coordinated care with Ashia. Patient to
remain GIP for management of pain and dyspnea.
[2024-12-24] MEDS: VALIUM INJECTION 5 MG IV (16:51)
[2024-12-24 19:36] VITALS: BP 102/54
[2024-12-25 07:55] VITALS: BP 135/64
--- NOTE | 2024-12-25 08:51 | W.PN.HOSP.TC ---
Today's Communication/Plan
-
Continue comfort measures/IP hospice
Assessment / Plan
Assessment / Plan
#Metastatic renal cancer
#UTI with obstructive nephrolithiasis and solitary right kidney
#Thrombocytopenia with concern for DIC
#Acute renal failure with uremic encephalopathy
#Hypothyroidism
#LE edema
Plan:
-Admit to inpatient hospice, maintain DNR status, discontinue treatment based medications
-Start comfort plan with end-of-life assessments
-Morphine as needed for pain or air hunger, can progress to drip as needed
-Ativan IV as needed for anxiety
-Zofran as needed for nausea or vomiting
-Transfer to [facility] room
DNR
Discussed with hospice nurse
Anticipated Discharge: 24 - 48 hours
Subjective/Interval History
-
Date of Service: December 25, 2024
Seen and examined at the bedside. No acute events reported overnight. No signs of distress on palliative morphine drip
Objective Data
-
Vital Signs:
Vital Signs
Temp Pulse Resp BP Pulse Ox
97.4 F 62 12 135/64 95
12/25/24 07:55 12/25/24 07:55 12/25/24 07:55 12/25/24 07:55 12/25/24 07:55
I&O
12/24/24 12/25/24 12/26/24
06:59 06:59 06:59
Intake Total 480 / 480 220 / 220
Output Total 1800 / 1800 900 / 900
Balance -1320 / -1320 -680 / -680
Review of Systems
-
History Source: Patient
All other systems: Reviewed and negative
Physical Exam
-
General: Well Developed, Appears Chronically Ill and Cachectic
HEENT: Normocephalic, Atraumatic and Moist Mucous Membranes
Respiratory: Non Labored Respirations and Decreased Breath Sounds
Cardiac: Regular Rhythm and S1/S2
GI: Soft, Nontender and Distended
Musculoskeletal: No Clubbing, No Cyanosis and Other (2+ edema)
Skin: Warm and Dry; Negative Rash
Neuro: Sedated and Nonfocal/Grossly Intact
Psych: Calm
--- NOTE | 2024-12-25 11:57 | HOSPNOTE ---
Patient is minimally responsive, opened his eyes with gentle touch, tries to speak but falls right back to sleep. FLACC 0 on Morphine drip step 1, no breakthrough doses needed and x1 dose of diazepam last evening. Patient appears to be actively
dying but is calm and comfortable. Updated friend John, via phone call, on condition and discussed life expectancy is limited to hours or days. Emotional support provided. Friends does not think he will be able to make it in but will inform other
family of his decline. Patient will remain GIP for management of pain, anxiety and dyspnea.
[2024-12-25] MEDS: MORPHINE 100 IV (13:23)
[2024-12-25 19:37] VITALS: BP 115/56
--- NOTE | 2024-12-26 08:39 | HOSPNOTE ---
[employer] visited 74 year old patient to conduct Initial BEND SORTER Assessment. 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 BEND SORTER spoke
with Nurse briefly for updates prior to visiting patient, she reported patient is resting with no concerns. BEND SORTER greeted patient upon entering his room, no response. No family members present during this visit. Patient lying in bed staring at the TV
upon BEND SORTER arrival. BEND SORTER sat near patient as she spoke, he responded with a grunt initially and then, said no when BEND SORTER asked if he was in pain. He responded no when BEND SORTER asked if he wanted BEND SORTER to call the nurse or get him something to eat. He grunted
when BEND SORTER asked how he felt. He responded no when asked if he had any other friends or family other than his cousin John. Patient Tech came in to take his vitals he refused vitals, eating, and agreed to something to drink, he wouldn't sip on the
straw, she spoon feed him 2 spoons of orange juice, he finally swallowed and them she swab his mouth. No signs of distress observed. Patient alert and provided yes or no responses, nodding of the head, and grunting throughout this visit. Prayer and
Emotional Support Provided BEND SORTER contacted patient's cousin/friend John to check on him and to provide updates from today's visit. He reported he was okay and surprised that patient was still responsive. He reported he is patient's cousin and not the
POA. He reported patient has a sister Mamie who resides in [place] and she will be visiting him today. He reported patient and Mamie haven't communicated in a while. He reported patient has never been and doesn't have any children. 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 He loves folk singing and would hang out with Jules Bowman. He is Mosque and isn't affiliated with a [employer], his wishes are to be cremated. BEND SORTER provided John with the contact information to the
[employer] [phone] and [facility]. [phone] to discuss cremation services. Family appeared to be coping appropriately. Bereavement Services declined at this time. Emotional Support Provided
Patient meets [facility] criteria for SN assessments, management of pain, anxiety, and dyspnea that could not be managed in an Outpatient setting. Discharge planning continues.
BEND SORTER will provide supportive services once a week while on [facility] Level of Care.
[2024-12-26] MEDS: MORPHINE SULFATE 2 MG IV (10:56)
[2024-12-26] MEDS: ROBINUL 0.2 MG IV (10:57)
--- NOTE | 2024-12-26 12:41 | HOSPNOTE ---
Patient is minimally responsive continues to be medicated IV for pain. Patient appears comfortable at this time however encouraged to medicate prior to care or repositioning. Patient will be seen daily by hospice.
--- NOTE | 2024-12-26 13:12 | PTCARENOTE ---
Patient found with no spontaneous respirations or heart sounds; MD notified.
--- NOTE | 2024-12-26 13:36 | W.PN.DEATH ---
Addendum entered and electronically signed by Jonelle Blank MD 12/26/24 17:22:
I was present with Dr. Green for pronouncement.
Original Note:
Pronouncement of
-
Called to see patient to pronounce.
No spontaneous heart tones or respirations noted.
Patient not responsive to verbal stimuli.
Patient is pronounced .
Time of : 13:30
Date of : 12/26/24
Cause of : Metastatic adrenal cancer
Family Notified: Yes (Called with John)
--- NOTE | 2024-12-26 13:49 | CM ---
Patient seen at bedside, and physician pronounced patient. Physician attempted to call [facility] and was unable to reach patient. CM called to Liaison with [facility] hospice. Hospice will try to reach family and update regarding patient status. Per hospice
patient [employer] and planned for cremation, information had been given to John. CM will continue to follow for discharge planning needs.
Plan; ,
--- NOTE | 2024-12-26 19:57 | W.DCSUMMARY ---
Addendum entered and electronically signed by Jonelle Blank MD 12/27/24 07:05:
Read, reviewed, and agree. See same day progress note for additional details. Time spent coordinating care, DC planning, review of DC plan of care with resident, transition of care, review of records in EMR, med rec, consults, notes, d/w
consultants, nursing, family, and CM = 65 minutes
Original Note:
Discharge Summary
Discharge Data
Date of Admission: 12/22/24
Date of Discharge: 12/26/24
Total time spent discharging patient (in min): 65
-
Pending Results: No
Hospital Course
Mr. Ashby is a 74-year-old male with metastatic adrenal carcinoma s/p chemoradiation, s/p immunotherapy, s/p NIH experimental trial medication from which he was recently discharged. He initially presented to the hospital with acute renal failure,
thrombocytopenia, UTI with obstructing nephrolithiasis in his solitary right kidney. Developed worsening renal function despite right ureteral stent placement as well as chronically low platelet count while here. Was assessed by nephrology,
urology, oncology. Due to his ECOG status, he was not candidate for further chemotherapy agents. He met with the hospitalist and the hospice team and formally agreed to transition to hospice.
#Metastatic renal cancer
#UTI with obstructive nephrolithiasis and solitary right kidney
#Thrombocytopenia with concern for DIC
#Acute renal failure with uremic encephalopathy
#Hypothyroidism
#LE edema
-Admitted to inpatient hospice, maintained DNR status, discontinued treatment based medications
-Started comfort plan with end-of-life assessments
-Morphine as needed for pain or air hunger. Progressed to morphine drip
-Ativan IV as needed for anxiety
-Zofran as needed for nausea or vomiting
-Transfered to [facility], private room
Discharge Plan
-
Patient Disposition:
Date/Time
Date/Time: 12/26/24 13:30
Discharge Date and Time
Discharge Date/Time: 12/26/24 13:30
Print Language: INDONESIAN
== END 2024-12-26 13:30 | disposition expired | DRG 951 ==
LOC: 2 NORTH 12:11
PROVIDERS: ADMITTING PHYSICIAN Internal Medicine; ATTENDING PHYSICIAN Internal Medicine
DX: Z51.5 Encounter for palliative care (principal); G93.41 Metabolic encephalopathy; N39.0 Urinary tract infection, site not specified; N17.9 Acute kidney failure, unspecified; G93.49 Other encephalopathy; C74.90 Malignant neoplasm of unspecified part of unspecified adrenal gland; Z66 Do not resuscitate; D69.6 Thrombocytopenia, unspecified; N20.0 Calculus of kidney; E03.9 Hypothyroidism, unspecified; Z87.891 Personal history of nicotine dependence; Z92.21 Personal history of antineoplastic chemotherapy; Z92.3 Personal history of irradiation